=== PATIENT | male | born 1950 | race Caucasian/White ===

== ENCOUNTER 2023-09-03 13:32 | Inpatient (IN) | payer BC, MEDICARE ==
[2023-09-03] MEDS ORDERED: HYDROmorphone 0.5 MG/0.5 ML SYRINGE IVP STA (15:18)
[2023-09-03] MEDS ORDERED: ONDANSETRON 4 MG/2 ML VIAL IVP STA (15:18)
--- NOTE | 2023-09-03 15:30 | XR ---
EXAMINATION TYPE: XR shoulder complete LT DATE OF EXAM: 09/03/2023 2:47 PM CLINICAL INDICATION:Male, 73 years old with history of pain; PHH COMPARISON: None TECHNIQUE: XR shoulder complete LT; shoulder was examined in AP, internally rotated and scapular Y p rojections. FINDINGS: No evidence of acute osseous pathology, joint dislocation, or soft tissue swelling. The remaining por tions of the visualized chest are unremarkable. IMPRESSION: No acute osseous pathology.
--- NOTE | 2023-09-03 15:31 | ED ---
Upper Extremity HPI - General Source: patient, RN notes reviewed Mode of arrival: ambulatory Limitations: no limitations <Jose De - Last Filed: 09/03/23 15:29> <Cali Knowles - Last Filed: 09/03/23 18:50> - General Chief Complaint: Extremity Injury, Upper Stated Complaint: shoulder pain fever Time Seen by Provider: 09/03/23 13:53 - History of Present Illness Initial Comments: 73-year-old male presents emergency Department chief complaint left shoulder redness, fever, pain. Patient states started a few days ago has really worsen. Patient went of subjective fevers, chills, sweats. Patient denies any trauma denies any prior joint infections or prior orthopedic surgeries. Patient states he has pain with any movement on the left shoulder. He doesn't at days had prior open heart surgery denies any neck pain or neck stiffness denies history of gout. (Jose De) - Related Data Home Medications Medication Instructions Recorded Confirmed Aspirin EC [Ecotrin Low Dose] 81 mg PO HS 09/03/23 09/03/23 Losartan Potassium [Cozaar] 100 mg PO DAILY 09/03/23 09/03/23 Metoprolol Tartrate [Lopressor] 50 mg PO BID 09/03/23 09/03/23 Simvastatin [Zocor] 40 mg PO DIRECTED 09/03/23 09/03/23 Simvastatin [Zocor] 80 mg PO DIRECTED 09/03/23 09/03/23 Tamsulosin [Flomax] 0.4 mg PO HS 09/03/23 09/03/23 Ubidecarenone [Coenzyme Q10] 200 mg PO HS 09/03/23 09/03/23 Allergies Allergy/AdvReac Type Severity Reaction Status Date / Time No Known Allergies Allergy Verified 09/03/23 18:11 Review of Systems ROS Other: All systems not noted in ROS Statement are negative. <Jose De - Last Filed: 09/03/23 15:29> ROS Other: All systems not noted in ROS Statement are negative. <Cali Knowles - Last Filed: 09/03/23 18:50> ROS Statement: Those systems with pertinent positive or pertinent negative responses have been documented in the HPI. Past Medical History Past Medical History: Diabetes Mellitus, GERD/Reflux, Hyperlipidemia, Hypert ension, Osteoarthritis (OA) Additional Past Medical History / Comment(s): diet control diabetic, ARTHRITIS IN KNEES, SINUS PROBLEMS, STRESS TEST A WEEK AGO, HAD PNE AND SHINGLES VACCINES FEW YEARS AGO NOT SURE OF DATE. History of Any Multi-Drug Resistant Organisms: None Reported Past Surgical History: Heart Catheterization With Stent Additional Past Surgical History / Comment(s): dental extractions, 08/31/16 HEART CATH Past Anesthesia/Blood Transfusion Reactions: No Reported Reaction Date of Last Stent Placement:: 2007 Past Psychological History: No Psychological Hx Reported Smoking Status: Never smoker Past Alcohol Use History: None Reported Past Drug Use History: None Reported - Past Family History Sister(s) Family Medical History: Cancer Father Family Medical History: Coronary Artery Disease (CAD) Additional Family Medical History / Comment(s): QUAD BYPASS AT AGE 69 Mother Family Medical History: Asthma Additional Family Medical History / Comment(s): EMPHYSEMA <Jose De - Last Filed: 09/03/23 15:29> General Exam Limitations: no limitations General appearance: alert, in no apparent distress Head exam: Present: atraumatic, normocephalic, normal inspection Neck exam: Present: normal inspection. Absent: tenderness, meningismus, lymphadenopathy Respiratory exam: Present: normal lung sounds bilaterally. Absent: respiratory distress, wheezes, rales, rhonchi, stridor Cardiovascular Exam: Present: normal rhythm, tachycardia, normal heart sounds. Absent: systolic murmur, diastolic murmur, rubs, gallop, clicks Extremities exam: Present: other (Left shoulder over the trapezius, AC, and lateral portion is erythema, swelling and tenderness palpation.) Neurological exam: Present: alert, oriented X3 Skin exam: Present: warm, dry, intact, normal color. Absent: rash <Jose De - Last Filed: 09/03/23 15:29> Course <Cali Knowles - Last Filed: 09/03/23 18:50> Vital Signs 09/03/23 09/03/23 13:47 16:15 Temperature 98.8 F Pulse Rate 103 H 99 Respiratory 18 18 Rate Blood Pressure 148/59 137/73 O2 Sat by Pulse 96 100 Oximetry - Reevaluation(s) Reevaluation #1: 09/03/23 18:47 Case, H&P, test results and ED management thus far were discussed with NAHUN Lagos. He accepts hospital admission on behalf of himself in Dr. Perez. He has no further recommendations at this time. 09/03/23 18:50 Patient and are aware the patient's test results, and they both agree with hospital admission at this time. Patient denies development of any new symptoms while in the ED. (Cali Knowles) Medical Decision Making - Lab Data Result diagrams: 09/03/23 15:15 09/03/23 17:10 <Cali Knowles - Last Filed: 09/03/23 18:50> - Medical Decision Making Was pt. sent in by a medical professional or institution (, NAHUN, AQUACULTURE AND FISHERIES PROFESSOR, urgent care, hospital, or detention...) When possible be specific @ -No Did you speak to anyone other than the patient for history (EMS, parent, family, police, friend...)? What history was obtained from this source @ -No Did you review nursing and triage notes (agree or disagree)? Why? @ -I reviewed and agree with nursing and triage notes Were old charts reviewed (outside hosp., previous admission, EMS record, old EKG, old radiological studies, urgent care reports/EKG's, detention records)? Report findings @ -No old charts were reviewed Differential Diagnosis (chest pain, altered mental status, abdominal pain women, abdominal pain men, vaginal bleeding, weakness, fever, dyspnea, syncope, headache, dizziness, GI bleed, back pain, seizure, CVA, palpatations, mental health, musculoskeletal)? @ -Shoulder pain, cellulitis, fracture, sprain, strain, shingles, septic joint EKG interpreted by me (3pts min.). @ -None done X-rays interpreted by me (1pt min.). @ -Left shoulder x-rays were reviewed myself and showed no acute osseous abnormality. I agree with the radiologist's interpretation as above. CT interpreted by me (1pt min.). @ -None done U/S interpreted by me (1pt. min.). @ -None done What testing was considered but not performed or refused? (CT, X-rays, U/S, labs)? Why? @ -None What meds were considered but not given or refused? Why? @ -None Did you discuss the management of the patient with other professionals (professionals i.e. , PA, AQUACULTURE AND FISHERIES PROFESSOR, lab, RT, psych nurse, social service worker, utility sales and service manager, teacher, division officer weapons department, rn case management)? Give summary @ -As above Was smoking cessation discussed for >3mins.? @ -No Was critical care preformed (if so, how long)? @ -No Were there social determinants of health that impacted care today? How? (Homelessness, low income, unemployed, alcoholism, drug addiction, transportation, low edu. Level, literacy, decrease access to med. care, custodial, rehab)? @ -No Was there de-escalation of care discussed even if they declined (Discuss DNR or withdrawal of care, Hospice)? DNR status @ -No What co-morbidities impacted this encounter? (DM, HTN, Smoking, COPD, CAD, Cancer, CVA, ARF, Chemo, Hep., AIDS, mental health diagnosis, sleep apnea, morbid obesity)? @ -None Was patient admitted / discharged? Hospital course, mention meds given and route, prescriptions, significant lab abnormalities, going to OR and other pertinent info. @ -Patient was endorsed to me by ED NAHUN De (secondary to end of his shift) with the patient's labs still pending. On examination, the patient has tender, blanching erythema noted over his left anterior and lateral shoulder region and extending to his left superior/lateral chest consistent with cellulitis. No crepitation is appreciated. Patient is afebrile. Patient does have a leukocytosis of 17,000. Patient's left shoulder x-rays are negative for any osseous pathology. Patient denies known shoulder injury. I suspect that the patient's symptoms/findings are due to cellulitis. Patient is also noted to be hyperglycemic with a blood glucose in the 300s, but he is not acidotic. Nahun santana has been treated with IV vancomycin and IV fluids in the ED. NAHUN Lagos has accepted hospital admission. Undiagnosed new problem with uncertain prognosis? @ -No Drug Therapy requiring intensive monitoring for toxicity (Heparin, Nitro, Insulin, Cardizem)? @ -No Were any procedures done? @ -No Diagnosis/symptom? @ -Left shoulder/chest wall cellulitis Acute, or Chronic, or Acute on Chronic? @ -Acute Uncomplicated (without systemic symptoms) or Complicated (systemic symptoms)? @ -default Side effects of treatment? @ -No Exacerbation, Progression, or Severe Exacerbation? @ -No Poses a threat to life or bodily function? How? (Chest pain, USA, CA, pneumonia, PE, COPD, DKA, ARF, appy, cholecystitis, CVA, Diverticulitis, Homicidal, Suicidal, threat to staff... and all critical care pts) @ -No Diagnosis/symptom? @ -Hyperglycemia Acute, or Chronic, or Acute on Chronic? @ -default Uncomplicated (without systemic symptoms) or Complicated (systemic symptoms)? @ -default Side effects of treatment? @ -none Exacerbation, Progression, or Severe Exacerbation] @ -no Poses a threat to life or bodily function? @ -no (Cali Knowles) - Lab Data Lab Results 09/03/23 09/03/23 09/03/23 Range/Units 15:15 17:10 18:08 WBC 17.9 H (3.8-10.6) k/uL RBC 4.52 (4.30-5.90) m/uL Hgb 13.4 (13.0-17.5) gm/dL Hct 40.1 (39.0-53.0) % MCV 88.7 (80.0-100.0) fL MCH 29.6 (25.0-35.0) pg MCHC 33.4 (31.0-37.0) g/dL RDW 14.5 (11.5-15.5) % Plt Count 445 (150-450) k/uL MPV 8.4 Neutrophils % 92 % Lymphocytes % 3 % Monocytes % 3 % Eosinophils % 1 % Basophils % 0 % Neutrophils # 16.5 H (1.3-7.7) k/uL Lymphocytes # 0.5 L (1.0-4.8) k/uL Monocytes # 0.6 (0-1.0) k/uL Eosinophils # 0.1 (0-0.7) k/uL Basophils # 0.1 (0-0.2) k/uL Sodium 131 L (137-145) mmol/L Potassium 4.9 (3.5-5.1) mmol/L Chloride 99 (98-107) mmol/L Carbon Dioxide 25 (22-30) mmol/L Anion Gap 7 mmol/L BUN 30 H (9-20) mg/dL Creatinine 0.60 L (0.66-1.25) mg/dL Est GFR (CKD-EPI)AfAm >90 (>60 ml/min/1.73 sqM) Est GFR (CKD-EPI)NonAf >90 (>60 ml/min/1.73 sqM) Glucose 307 H (74-99) mg/dL Plasma Lactic Acid Baljit 1.4 (0.7-2.0) mmol/L Uric Acid 4.0 (3.5-8.5) mg/dL Calcium 8.0 L (8.4-10.2) mg/dL Total Bilirubin 0.8 (0.2-1.3) mg/dL AST 58 (17-59) U/L ALT 37 (4-49) U/L Alkaline Phosphatase 146 H (38-126) U/L C-Reactive Protein 26.1 H (<1.0) mg/dL Total Protein 5.1 L (6.3-8.2) g/dL Albumin 2.3 L (3.5-5.0) g/dL - Radiology Data Left shoulder x-rays: No acute osseous pathology. (Cali Knowles) Disposition <Jose De - Last Filed: 09/03/23 15:29> Is patient prescribed a controlled substance at d/c from ED?: No Time of Disposition: 18:47 <Cali Knowles - Last Filed: 09/03/23 18:50> Clinical Impression: Cellulitis, Hyperglycemia Disposition: ADMITTED IP TO THIS HOSP Condition: Stable Referrals: Rogers Boykin DO [Primary Care Provider] - 1-2 days
[2023-09-03 16:02] LABS: Basophils # (A) 0.1 k/uL (0-0.2); Basophils % (A) 0 %; Eosinophils # (A) 0.1 k/uL (0-0.7); Eosinophils % (A) 1 %; HCT 40.1 % (39.0-53.0); HGB 13.4 gm/dL (13.0-17.5); Lymphocytes # (A) 0.5 k/uL (1.0-4.8); Lymphocytes % (A) 3 %; MCH 29.6 pg (25.0-35.0); MCHC 33.4 g/dL (31.0-37.0); MCV 88.7 fL (80.0-100.0); Mean Platelet Volume 8.4; Monocytes # (A) 0.6 k/uL (0-1.0); Monocytes % (A) 3 %; Neutrophils # (A) 16.5 k/uL (1.3-7.7); Neutrophils % (A) 92 %; Platelet Count 445 k/uL (150-450); RBC 4.52 m/uL (4.30-5.90); RDW 14.5 % (11.5-15.5); WBC 17.9 k/uL (3.8-10.6)
[2023-09-03] MEDS ORDERED: VANCOMYCIN IV PER PHARMACY 1 EACH MISC MISCELLANE PRN (16:08)
[2023-09-03] MEDS ORDERED: VANCOMYCIN 1,750 MG in SODIUM CHLORIDE 0.9% 500 ML 500 ML IVPB STA (16:10)
[2023-09-03 17:34] LABS: ALT 37 U/L (4-49); AST 58 U/L (17-59); African American GFR (CKD) >90 (>60 ml/min/1.73 sqM); Albumin 2.3 g/dL (3.5-5.0); Alkaline Phosphatase 146 U/L (38-126); Anion Gap 7 mmol/L; Blood Urea Nitrogen 30 mg/dL (9-20); Carbon Dioxide 25 mmol/L (22-30); Chloride 99 mmol/L (98-107); Glucose 307 mg/dL (74-99); Non-African American GFR(CKD) >90 (>60 ml/min/1.73 sqM); Sodium 131 mmol/L (137-145); Total Bilirubin 0.8 mg/dL (0.2-1.3); Total Protein 5.1 g/dL (6.3-8.2)
[2023-09-03 17:46] LABS: C Reactive Protein 26.1 mg/dL (<1.0); Potassium 4.9 mmol/L (3.5-5.1)
[2023-09-03] MEDS ORDERED: SODIUM CHLORIDE 0.9% 1,000 ML IV ONE (18:22)
[2023-09-03] MEDS ORDERED: NALOXONE 0.4 MG/ML 1 ML VIAL IV PRN (18:48)
[2023-09-03] MEDS: ACETAMINOPHEN TAB 325 MG TAB PO PRN (20:48)
[2023-09-03] MEDS: MORPHINE SULFATE 4 MG/ML SYRINGE IVP PRN (20:49)
[2023-09-03 23:24] LABS: Erythrocyte Sedimentation Rate >130 mm/Hr (0-20)
[2023-09-04 04:50] LABS: ALT 45 U/L (4-49); AST 108 U/L (17-59); African American GFR (CKD) >90 (>60 ml/min/1.73 sqM); Albumin 2.1 g/dL (3.5-5.0); Albumin/Globulin Ratio 0.8; Alkaline Phosphatase 128 U/L (38-126); Anion Gap 5 mmol/L; Blood Urea Nitrogen 31 mg/dL (9-20); Calcium 7.8 mg/dL (8.4-10.2); Carbon Dioxide 22 mmol/L (22-30); Chloride 104 mmol/L (98-107); Globulin 2.6 g/dL; Glucose 232 mg/dL (74-99); Non-African American GFR(CKD) >90 (>60 ml/min/1.73 sqM); Sodium 131 mmol/L (137-145); Total Bilirubin 0.8 mg/dL (0.2-1.3); Total Protein 4.7 g/dL (6.3-8.2)
[2023-09-04 04:52] LABS: Potassium 5.2 mmol/L (3.5-5.1)
[2023-09-04] MEDS ORDERED: VANCOMYCIN 1,750 MG in SODIUM CHLORIDE 0.9% 500 ML 500 ML IVPB SCH (06:00)
[2023-09-04 09:34] LABS: Basophils # (A) 0.04 X 10*3/uL (0.00-0.10); Basophils % (A) 0.2 %; Eosinophils # (A) 0.18 X 10*3/uL (0.04-0.35); HCT 36.7 % (39.6-50.0); HGB 11.8 d/dL (13.0-17.0); Lymphocytes # (A) 0.88 X 10*3/uL (0.90-5.00); Lymphocytes % (A) 4.7 %; MCH 27.8 pg (27.0-32.0); MCHC 32.2 d/dL (32.0-37.0); MCV 86.4 FL (80.0-97.0); Mean Platelet Volume 10.3 FL (9.5-12.2); Monocytes # (A) 0.62 X 10*3/uL (0.20-1.00); Monocytes % (A) 3.3 %; NRBC Per 100 WBC 0 X 10*3/uL (0.00-0.01); Neutrophils # (A) 16.05 X 10*3/uL (1.80-7.70); Neutrophils % (A) 86.2 %; Platelet Count 421 X 10*3/uL (140-440); RBC 4.25 X 10*6/uL (4.40-5.60); RBC Morphology Normal (Normal); RDW 15.2 % (11.5-14.5); WBC 18.62 X 10*3/uL (4.50-10.00)
[2023-09-04] MEDS: SODIUM CHLORIDE 0.9% 1,000 ML IV SCH (12:39)
--- NOTE | 2023-09-04 13:48 | US ---
EXAMINATION TYPE: US venous doppler duplex UE LT DATE OF EXAM: 09/04/2023 Exam done portable COMPARISON: NONE CLINICAL INDICATION: Male, 73 years old with history of r/o dvt; Left shoulder pain, swelling and red ness SIDE PERFORMED: Left Left Arm: Appears negative for DVT IMPRESSION: Grayscale, color doppler, spectral doppler imaging performed of the deep veins of the upper extremiti es. There is normal flow, compressibility and vascular waveforms.
[2023-09-04] MEDS ORDERED: RX INFO: IV CONTRAST WAS GIVEN 1 EACH MISC MISCELLANE PRN (14:13)
[2023-09-04] MEDS: CLINDAMYCIN 900 MG in DEXTROSE 5% IN WATER 50 ML IVPB SCH ×2 (16:53)
--- NOTE | 2023-09-04 19:43 | CT ---
EXAMINATION TYPE: CT shoulder LT w con CT DLP: 1156.6 mGycm, Automated exposure control for dose reduction was used. DATE OF EXAM: 09/04/2023 4:24 PM COMPARISON: Extremity radiograph 09/03/2023 CLINICAL INDICATION:Male, 73 years old with history of abscess; PHH, left shoulder redness and swelli ng TECHNIQUE: Axial images were obtained of the left shoulder w contrast. Additional coronal and sagitt al reformatted images and soft tissue and bone window were obtained for review. 3-D reconstruction wa s created on a separate workstation. Contrast used:80 cc mL of Isovue 370 with IV Contrast, Oral contrast used: None FINDINGS: Erosion Control Coordinator view shows sternotomy wires and mild cardiomegaly. Bone: Normal osseous mineralization. No fracture or gross osseous destructive process. AC joint and g lenohumeral joint show mild degenerative changes with preserved alignment. Soft tissues: Surrounding the left glenohumeral joint there is a moderately large heterogeneous flui d collection with irregular margins and peripheral enhancement, with involvement of the joint space a nd surrounding soft tissues, including some extension medially along the scapular wing anteriorly to its midportion. Collection also extends into the superficial musculature, especially the deltoid. The re are couple of small radiodensities seen within the fluid collection just inferior to the glenohume ral joint, the larger 6 mm and the smaller 2 mm There is also a small amount of fluid and gas bubbles seen in the soft tissues superior and anterior to the acromioclavicular joint, with some apparent fluid and small gas bubbles extending into the analia nt space. Visualized vasculature appears grossly patent. Note the distal humerus/arm is not imaged beyond the m id humeral shaft. Other: Mild cardiomegaly. Post CABG changes, including mediastinal clips and sternotomy wires. Mild/m oderate atherosclerotic calcification of the aorta and [place] coronary arteries. Visualized lungs joshua w no focal consolidation or pneumothorax. Mild pleural thickening posteriorly on the left. Mild left perinephric stranding, may be chronic but if there is concern for infection correlation with urinalys is may be considered. IMPRESSION: 1. No evidence of fracture, dislocation, or osseous destructive changes in the left shoulder. 2. Mild degenerative changes of the glenohumeral and acromioclavicular joints. 3. Moderately large fluid collection involving the left glenohumeral joint and surrounding soft tiss ues, highly concerning for abscess and septic joint. A couple small radiodensities within this colle ction, could relate to calcifications and/or foreign bodies. 4. Smaller amount of fluid and gas bubbles within the AC joint and extending superiorly, likely also of infectious etiology.
[2023-09-04 20:54] LABS: Glucose,Whole Blood 217 mg/dL (70-110)
[2023-09-04] MEDS ORDERED: NON FORMULARY DRUG (Ubidecarenone [Coenzyme Q10] 200 MG Capsule) PO SCH (21:00)
[2023-09-04] MEDS: LOSARTAN 50 MG TAB PO SCH (21:44)
[2023-09-04] MEDS: METOPROLOL TARTRATE 50 MG TAB PO SCH (22:11)
[2023-09-04] MEDS: TAMSULOSIN 0.4 MG CAP.ER.24H PO SCH (22:11)
[2023-09-04] MEDS: ATORVASTATIN 20 MG TAB PO SCH (22:11)
[2023-09-04] MEDS: INSULIN ASPART (NovoLOG) 100 UNIT/ML VIAL SQ SCH (22:12)
[2023-09-04] MEDS: ASPIRIN 81 MG PO SCH (22:12)
[2023-09-04] MEDS: ACETAMINOPHEN TAB 325 MG TAB PO PRN (22:14)
[2023-09-05] MEDS: CLINDAMYCIN 900 MG in DEXTROSE 5% IN WATER 50 ML IVPB SCH ×6 (00:12→16:42)
[2023-09-05] MEDS: SODIUM CHLORIDE 0.9% 1,000 ML IV SCH ×2 (00:14→08:46)
[2023-09-05] MEDS: MORPHINE SULFATE 4 MG/ML SYRINGE IVP PRN (02:38)
[2023-09-05 06:06] LABS: African American GFR (CKD) >90 (>60 ml/min/1.73 sqM); Non-African American GFR(CKD) >90 (>60 ml/min/1.73 sqM)
[2023-09-05 06:19] LABS: Glucose,Whole Blood 187 mg/dL (70-110)
[2023-09-05] MEDS: INSULIN ASPART (NovoLOG) 100 UNIT/ML VIAL SQ SCH ×4 (07:10→21:18)
[2023-09-05] MEDS: METOPROLOL TARTRATE 50 MG TAB PO SCH ×2 (08:51→21:17)
[2023-09-05] MEDS: LOSARTAN 50 MG TAB PO SCH (08:51)
[2023-09-05] MEDS ORDERED: HEPARIN SODIUM,PORCINE 5,000 UNIT/ML 1 ML VIAL SQ SCH (10:30)
--- NOTE | 2023-09-05 11:02 | P.HPIM ---
History of Present Illness Patient is a pleasant 73-year-old male came in with compensative left shoulder pain unable to lift it and is also found to have cellulitis of the left upper extremity. Doppler of the left upper extremity did not show any DVT patient denied any history of MRSA presently on ceftezoline and clindamycin, infectious disease was consulted because of the concerns of shoulder joint infection, although Tash surgery was consulted. Patient does have leukocytosis and low- grade fevers. Patient recently visited urgent care who sent him here he visited urgent care because of significant generalized weakness REVIEW OF SYSTEMS: CONSTITUTIONAL: No fever, no malaise, no fatigue. HEENT: No recent visual problems or hearing problems. Denied any sore throat. CARDIOVASCULAR: No chest pain, orthopnea, PND, no palpitations, no syncope. PULMONARY: No shortness of breath, no cough, no hemoptysis. GASTROINTESTINAL: No diarrhea, no nausea, no vomiting, no abdominal pain. NEUROLOGICAL: No headaches, no weakness, no numbness. HEMATOLOGICAL: Denies any bleeding or petechiae. GENITOURINARY: Denies any burning micturition, frequency, or urgency. MUSCULOSKELETAL/RHEUMATOLOGICAL: As mentioned in HPI ENDOCRINE: Denies any polyuria or polydipsia. The rest of the 14-point review of systems is negative. PHYSICAL EXAMINATION: GENERAL: The patient is alert and oriented x3, not in any acute distress. Well developed, well nourished. HEENT: Pupils are round and equally reacting to light. EOMI. No scleral icterus. No conjunctival pallor. Normocephalic, atraumatic. No pharyngeal erythema. No thyromegaly. CARDIOVASCULAR: S1 and S2 present. No murmurs, rubs, or gallops. PULMONARY: Chest is clear to auscultation, no wheezing or crackles. ABDOMEN: Soft, nontender, nondistended, normoactive bowel sounds. No palpable organomegaly. MUSCULOSKELETAL: Unable to move the left upper extremity at the shoulder region because of the severe pain. EXTREMITIES: No cyanosis, clubbing, or pedal edema. NEUROLOGICAL: Gross neurological examination did not reveal any focal deficits. SKIN: Significant cellulitis of the left upper extremity extending up to the left shoulder and forearm. Assessment and plan -Cellulitis of the left upper extremity: Patient was started on ceftezolin, clindamycin and with infectious disease consultation. Shoulder joint infection cannot be ruled out, orthopedic surgery was consulted. -Hypervolemic hyponatremia patient was started on IV fluids because of elevated chloride I changed it to lactated Ringer's. -Hypertension patient has low normal blood pressures because of which cutting down the dose of losartan and metoprolol will be continued -Benign prostatic hypertrophy continue with Flomax -Hyperlipidemia -Type 2 diabetes mellitus -Osteoarthritis -Coronary artery disease with stents in the past patient was resumed on his home medications -Mild hyperkalemia: Secondary to losartan dose of which was decreased DVT prophylaxis: Lovenox 50 mg subcutaneous Past Medical History Past Medical History: Diabetes Mellitus, GERD/Reflux, Hyperlipidemia, Hyperte nsion, Osteoarthritis (OA) Additional Past Medical History / Comment(s): diet control diabetic, ARTHRITIS IN KNEES, SINUS PROBLEMS, STRESS TEST A WEEK AGO, HAD PNE AND SHINGLES VACCINES FEW YEARS AGO NOT SURE OF DATE. History of Any Multi-Drug Resistant Organisms: None Reported Past Surgical History: Heart Catheterization With Stent Additional Past Surgical History / Comment(s): dental extractions, 08/31/16 HEART CATH Past Anesthesia/Blood Transfusion Reactions: No Reported Reaction Date of Last Stent Placement:: 2007 Past Psychological History: No Psychological Hx Reported Smoking Status: Never smoker Past Alcohol Use History: None Reported Past Drug Use History: None Reported - Past Family History Sister(s) Family Medical History: Cancer Father Family Medical History: Coronary Artery Disease (CAD) Additional Family Medical History / Comment(s): QUAD BYPASS AT AGE 69 Mother Family Medical History: Asthma Additional Family Medical History / Comment(s): EMPHYSEMA Medications and Allergies Home Medications Medication Instructions Recorded Confirmed Type Aspirin EC [Ecotrin Low Dose] 81 mg PO HS 09/03/23 09/03/23 History Losartan Potassium [Cozaar] 100 mg PO DAILY 09/03/23 09/03/23 History Metoprolol Tartrate [Lopressor] 50 mg PO BID 09/03/23 09/03/23 History Simvastatin [Zocor] 40 mg PO DIRECTED 09/03/23 09/03/23 History Simvastatin [Zocor] 80 mg PO DIRECTED 09/03/23 09/03/23 History Tamsulosin [Flomax] 0.4 mg PO HS 09/03/23 09/03/23 History Ubidecarenone [Coenzyme Q10] 200 mg PO HS 09/03/23 09/03/23 History Allergies Allergy/AdvReac Type Severity Reaction Status Date / Time No Known Allergies Allergy Verified 09/03/23 18:11 Physical Exam Vitals: Vital Signs Temp Pulse Pulse Resp BP BP Pulse Ox 09/05/23 07:17 98.3 F 90 18 127/68 94 L 09/05/23 01:34 98 F 74 111/67 94 L 09/04/23 20:00 98.1 F 87 135/73 94 L 09/04/23 19:49 15 09/04/23 13:35 98.5 F 97 19 140/71 94 L Intake and Output 09/04/23 09/05/23 09/05/23 22:59 06:59 14:59 Output Total 850 Balance -850 Output: Urine 850 Straight 750 Other: # Voids 2 # Bowel Movements 0 Results CBC & Chem 7: 09/04/23 04:21 09/05/23 05:38 Labs: Abnormal Lab Results - Last 24 Hours (Table) 09/04/23 09/05/23 09/05/23 Range/Units 20:52 05:38 06:17 Creatinine 0.62 L (0.66-1.25) mg/dL POC Glucose (mg/dL) 217 H 187 H (70-110) mg/dL Microbiology - Last 24 Hours (Table) 09/03/23 15:00 Blood Culture Gram Stain - Preliminary Blood Blood Culture - Preliminary Strep agalactiae - (group b) 09/03/23 15:15 Blood Culture - Preliminary Blood Thrombosis Risk Factor Assmnt - Choose All That Apply Each Factor Represents 1 point: Obesity (BMI >25) Each Risk Factor Represents 2 Points: Age 61-74 years Thrombosis Risk Factor Assessment Total Risk Factor Score: 3 Thrombosis Risk Factor Assessment Level: Moderate Risk
[2023-09-05 11:31] LABS: BUN/Creat Ratio 30.14 Ratio (12.00-20.00); Blood Urea Nitrogen 21.1 mg/dL (9.0-27.0); Calcium 7.7 mg/dL (8.7-10.3); Carbon Dioxide 22.2 mmol/L (21.6-31.8); Chloride 104 mmol/L (96-109); Glucose 197 mg/dL (70-110); Potassium 4.7 mmol/L (3.5-5.5); Sodium 135 mmol/L (135-145)
[2023-09-05 11:42] LABS: HCT 31.5 % (39.6-50.0); HGB 10.2 d/dL (13.0-17.0); MCHC 32.4 d/dL (32.0-37.0); MCV 86.5 FL (80.0-97.0); NRBC Per 100 WBC 0 X 10*3/uL (0.00-0.01); Platelet Count 387 X 10*3/uL (140-440); RBC 3.64 X 10*6/uL (4.40-5.60); RDW 15.2 % (11.5-14.5); WBC 17.28 X 10*3/uL (4.50-10.00)
[2023-09-05 12:22] LABS: Glucose,Whole Blood 319 mg/dL (70-110)
--- NOTE | 2023-09-05 12:32 | P.CNOR ---
History of Present Illness - [facility] Consult date: 09/05/23 History of present illness: This patient is a 73- year old male with a past medical history of type 2 diabetes, coronary artery disease, hypertension, hyperlipidemia that presented to [facility] emergency department on Tuesday09/03/23 with complaints of left shoulder pain. He states the pain has been present about a week, but s ignificantly worsened over the last few days. He was evaluated initially by an urgent care, who sent the patient to the emergency department. Patient was admitted under the care of internal medicine on 09/03/23. Infectious disease was consulted and CT of the left shoulder was ordered, which showed a large fluid collection and joint effusion concerning for abscess/septic arthritis. Blood cultures drawn on 09/03 also are positive for group B strep. Consult to orthopedic surgery was placed this morning 09/05 for evaluation of the patient's left shoulder. Patient is examined bedside today with Dr. Ball. He complains of left shoulder pain and inability to move the shoulder due to swelling and pain. No additional complaints. WBC elevated at 17.2 this morning, currently afebrile. Past Medical History Past Medical History: Diabetes Mellitus, GERD/Reflux, Hyperlipidemia, Hypertension, Osteoarthritis (OA) Additional Past Medical History / Comment(s): diet control diabetic, ARTHRITIS IN KNEES, SINUS PROBLEMS, STRESS TEST A WEEK AGO, HAD PNE AND SHINGLES VACCINES FEW YEARS AGO NOT SURE OF DATE. History of Any Multi-Drug Resistant Organisms: None Reported Past Surgical History: Heart Catheterization With Stent Additional Past Surgical History / Comment(s): dental extractions, 08/31/16 HEART CATH Past Anesthesia/Blood Transfusion Reactions: No Reported Reaction Date of Last Stent Placement:: 2007 Past Psychological History: No Psychological Hx Reported Smoking Status: Never smoker Past Alcohol Use History: None Reported Past Drug Use History: None Reported - Past Family History Sister(s) Family Medical History: Cancer Father Family Medical History: Coronary Artery Disease (CAD) Additional Family Medical History / Comment(s): QUAD BYPASS AT AGE 69 Mother Family Medical History: Asthma Additional Family Medical History / Comment(s): EMPHYSEMA Medications and Allergies Home Medications Medication Instructions Recorded Confirmed Type Aspirin EC [Ecotrin Low Dose] 81 mg PO HS 09/03/23 09/03/23 History Losartan Potassium [Cozaar] 100 mg PO DAILY 09/03/23 09/03/23 History Metoprolol Tartrate [Lopressor] 50 mg PO BID 09/03/23 09/03/23 History Simvastatin [Zocor] 40 mg PO DIRECTED 09/03/23 09/03/23 History Simvastatin [Zocor] 80 mg PO DIRECTED 09/03/23 09/03/23 History Tamsulosin [Flomax] 0.4 mg PO HS 09/03/23 09/03/23 History Ubidecarenone [Coenzyme Q10] 200 mg PO HS 09/03/23 09/03/23 History Allergies Allergy/AdvReac Type Severity Reaction Status Date / Time No Known Allergies Allergy Verified 09/03/23 18:11 Physical Examination On examination, patient is sitting up in bed in no acute distress. He is alert and orientated x3. His head appears normocephalic and atraumatic. His breathing appears nonlabored. A focused examination of the left shoulder is conducted. On inspection of the left upper extremity, there is diffuse swelling and erythema of the shoulder with swelling extending to the hand. No open wounds. Patient is unable to tolerate passive [id number] of the shoulder due to pain. There is diffuse pain with palpation of the shoulder with fluctuance. No pain with palpation of the elbow, forearm, wrist, hand. Motor and sensory function grossly intact left upper extremity. Left upper extremity warm and well perfused. Results CT scan of the left shoulder reviewed. - Labs Labs: Abnormal Lab Results - Last 24 Hours (Table) 09/04/23 09/05/23 09/05/23 Range/Units 20:52 05:38 05:38 WBC 17.28 H (4.50-10.00) X 10*3/uL RBC 3.64 L (4.40-5.60) X 10*6/uL Hgb 10.2 L (13.0-17.0) d/dL Hct 31.5 L (39.6-50.0) % RDW 15.2 H (11.5-14.5) % Creatinine 0.62 L (0.66-1.25) mg/dL BUN/Creatinine Ratio (12.00-20.00) Ratio Glucose (70-110) mg/dL POC Glucose (mg/dL) 217 H (70-110) mg/dL Calcium (8.7-10.3) mg/dL 09/05/23 09/05/23 Range/Units 05:38 06:17 WBC (4.50-10.00) X 10*3/uL RBC (4.40-5.60) X 10*6/uL Hgb (13.0-17.0) d/dL Hct (39.6-50.0) % RDW (11.5-14.5) % Creatinine (0.66-1.25) mg/dL BUN/Creatinine Ratio 30.14 H (12.00-20.00) Ratio Glucose 197 H (70-110) mg/dL POC Glucose (mg/dL) 187 H (70-110) mg/dL Calcium 7.7 L (8.7-10.3) mg/dL Microbiology - Last 24 Hours (Table) 09/03/23 15:00 Blood Culture Gram Stain - Preliminary Blood Blood Culture - Preliminary Strep agalactiae - (group b) 09/03/23 15:15 Blood Culture - Preliminary Blood H & H 09/03/23 09/04/23 09/05/23 Range/Units 15:15 04:21 05:38 Hgb 13.4 11.8 L 10.2 L (13.0-17.5) gm/dL Hct 40.1 36.7 L 31.5 L (39.0-53.0) % Result Diagrams: 09/05/23 05:38 09/05/23 05:38 Assessment and Plan Assessment: Left shoulder pain Left shoulder septic arthritis Plan: - Recommend aspiration of the patient's left shoulder, which was performed bedside during exam. Aspiration revealed nahed purulence from the left shoulder. The fluid was sent to the lab for culture. Recommend formal I&D of the left shou lder in the operating room this afternoon. This was discussed in detail with the patient and his nurse. Risks verus benefits were discussed with the patient and verbal consent obtained. - Will plan for I&D of the left shoulder later this afternoon. Patient's last meal was around 8am this morning. Patient should remain NPO at this time. - Medical management, IV antibiotics per admitting team and infectious disease. Procedure: The skin overlying the posterior shoulder was prepped with Chlorapr ep. An 18-g spinal needle was inserted and ~40mL of nahed pus was aspirated from the left shoulder. The needle was removed and a bandaid was applied. The fluid was sent to the lab for culture. The patient tolerated this well.
[2023-09-05] MEDS: LACTATED RINGERS 1,000 ML IV SCH (12:53)
--- NOTE | 2023-09-05 13:41 | P.HPIM ---
History of Present Illness This is a pleasant 73 years old male with past medical history of Diabetes Mellitus, GERD/Reflux, Hyperlipidemia, Hypertension, Osteoarthritis diet control diabetic, ARTHRITIS IN KNEES, History of coronary artery disease, status post Heart Catheterization With Stent Patient presents because of redness swelling and tenderness around the left shoulder, left upper chest. Patient says that this is started last Tuesday and he noticed A gradually getting worse, currently has difficulty moving his arm because of pain which is mainly in the left upper shoulder. Patient denies trauma. Denies any muscle or insect bite He had pain in the left shoulder area about 10/10 on admission but not as much better with pain medication. Patient denies any chest pain or dyspnea other than above. No change in mental status. No change in urine or bowel habits. Patient had low-grade fever 100.5 on admission, rest of vitals looks stable. Also he has mild leukocytosis of 17.9, rest of CBC is unremarkable ESR is elevated more than 1:30. Sodium 131, potassium 5.2, creatinine 0.6. Glucose elevated more than 320 30. Liver enzymes not elevated. C-reactive protein is elevated at 26. On admission patient was started on IV vancomycin and received 1 L of normal saline boluses Review of Systems Review of systems CONSTITUTIONAL: No fever, no malaise, no fatigue. HEENT: No recent visual problems or hearing problems. Denied any sore throat. CARDIOVASCULAR: No orthopnea, PND, no palpitations, no syncope. PULMONARY: No shortness of breath, no cough, no hemoptysis. GASTROINTESTINAL: No diarrhea, no nausea, no vomiting, no abdominal pain. Normoactive bowel sounds. NEUROLOGICAL: No headaches, no weakness, no numbness. HEMATOLOGICAL: Denies any bleeding or petechiae. GENITOURINARY: Denies any burning micturition, frequency, or urgency. MUSCULOSKELETAL/RHEUMATOLOGICAL: Denies any joint pain, swelling, or any muscle pain. ENDOCRINE: Denies any polyuria or polydipsia. Past Medical History Past Medical History: Diabetes Mellitus, GERD/Reflux, Hyperlipidemia, Hypertension, Osteoarthritis (OA) Additional Past Medical History / Comment(s): diet control diabetic, ARTHRITIS IN KNEES, SINUS PROBLEMS, STRESS TEST A WEEK AGO, HAD PNE AND SHINGLES VACCINES FEW YEARS AGO NOT SURE OF DATE. History of Any Multi-Drug Resistant Organisms: None Reported Past Surgical History: Heart Catheterization With Stent Additional Past Surgical History / Comment(s): dental extractions, 08/31/16 HEART CATH Past Anesthesia/Blood Transfusion Reactions: No Reported Reaction Date of Last Stent Placement:: 2007 Past Psychological History: No Psychological Hx Reported Smoking Status: Never smoker Past Alcohol Use History: None Reported Past Drug Use History: None Reported - Past Family History Sister(s) Family Medical History: Cancer Father Family Medical History: Coronary Artery Disease (CAD) Additional Family Medical History / Comment(s): QUAD BYPASS AT AGE 69 Mother Family Medical History: Asthma Additional Family Medical History / Comment(s): EMPHYSEMA Medications and Allergies Home Medications Medication Instructions Recorded Confirmed Type Aspirin EC [Ecotrin Low Dose] 81 mg PO HS 09/03/23 09/03/23 History Losartan Potassium [Cozaar] 100 mg PO DAILY 09/03/23 09/03/23 History Metoprolol Tartrate [Lopressor] 50 mg PO BID 09/03/23 09/03/23 History Simvastatin [Zocor] 40 mg PO DIRECTED 09/03/23 09/03/23 History Simvastatin [Zocor] 80 mg PO DIRECTED 09/03/23 09/03/23 History Tamsulosin [Flomax] 0.4 mg PO HS 09/03/23 09/03/23 History Ubidecarenone [Coenzyme Q10] 200 mg PO HS 09/03/23 09/03/23 History Allergies Allergy/AdvReac Type Severity Reaction Status Date / Time No Known Allergies Allergy Verified 09/03/23 18:11 Physical Exam Vitals: Vital Signs Temp Pulse Resp BP Pulse Ox 09/04/23 01:12 99.4 F 85 22 139/78 92 L 09/03/23 22:18 98.9 F 09/03/23 20:00 100.5 F H 94 18 117/69 97 09/03/23 18:54 101 H 18 140/86 96 09/03/23 16:15 99 18 137/73 100 09/03/23 13:47 98.8 F 103 H 18 148/59 96 GENERAL: The patient is alert and oriented x3, not in any acute distress. Well developed, well nourished. HEENT: Pupils are round and equally reacting to light. EOMI. No scleral icterus. No conjunctival pallor. Normocephalic, atraumatic. No pharyngeal erythema. No thyromegaly. CARDIOVASCULAR: S1 and S2 present. No murmurs, rubs, or gallops. PULMONARY: Chest is clear to auscultation, no wheezing , no crackles. ABDOMEN: Soft, nontender, nondistended, normoactive bowel sounds. No palpable organomegaly. MUSCULOSKELETAL: No joint swelling or deformity. Left shoulder swelling present and tender with limitation of movement, extending into the left upper chest and left upper arm. The left upper extremities are swollen EXTREMITIES: No cyanosis, clubbing, or pedal edema. NEUROLOGICAL: Gross neurological examination did not reveal any focal deficits. SKIN: No rashes. no petechiae. Results CBC & Chem 7: 09/04/23 04:21 09/04/23 04:21 Labs: Abnormal Lab Results - Last 24 Hours (Table) 09/03/23 09/03/23 09/04/23 Range/Units 15:15 17:10 04:21 WBC 17.9 H (3.8-10.6) k/uL Neutrophils # 16.5 H (1.3-7.7) k/uL Lymphocytes # 0.5 L (1.0-4.8) k/uL ESR >130 H (0-20) mm/Hr Sodium 131 L 131 L (137-145) mmol/L Potassium 5.2 H (3.5-5.1) mmol/L BUN 30 H 31 H (9-20) mg/dL Creatinine 0.60 L 0.60 L (0.66-1.25) mg/dL Glucose 307 H 232 H (74-99) mg/dL Calcium 8.0 L 7.8 L (8.4-10.2) mg/dL AST 108 H (17-59) U/L Alkaline Phosphatase 146 H 128 H (38-126) U/L C-Reactive Protein 26.1 H (<1.0) mg/dL Total Protein 5.1 L 4.7 L (6.3-8.2) g/dL Albumin 2.3 L 2.1 L (3.5-5.0) g/dL Assessment and Plan Assessment: Left shoulder and chest wall cellulitis Mild sepsis with fever and leukocytosis Diabetes mellitus Hypertension Hyperlipidemia History of osteoarthritis History of coronary artery disease status post stent Plan: Continue with antibiotic Consults infectious disease team Start normal saline at 75 mL/h Labs and medication were reviewed.. Continue same treatment. Continue with symptomatic treatment. Resume home medication. Monitor lytes and vitals. DVT and GI prophylaxis. Further recommendations depends on the clinical course of the patient DVT prophylaxis: Subcutaneous heparin GI Prophylaxis: Pepcid PT/OT: Pending Prognosis is guarded
[2023-09-05 16:59] LABS: Glucose,Whole Blood 249 mg/dL (70-110)
[2023-09-05] MEDS ORDERED: LACTATED RINGERS 1,000 ML IV ONE (17:31)
[2023-09-05] MEDS ORDERED: SUCCINYLCHOLINE CHLORIDE 200 MG/10 ML VIAL IV ONE (18:08)
[2023-09-05] MEDS ORDERED: GLYCOPYRROLATE 0.2 MG/ML 2 ML VIAL ONE (18:08)
[2023-09-05] MEDS ORDERED: HYDROmorphone (PF) 1 MG/ML ONE (18:08)
[2023-09-05] MEDS ORDERED: PROPOFOL 10 MG/ML 20 ML VIAL IV ONE (18:08)
[2023-09-05] MEDS ORDERED: ROCURONIUM 10 MG/ML (5 ML VIAL) IV ONE (18:08)
[2023-09-05] MEDS ORDERED: ONDANSETRON 4 MG/2 ML VIAL ONE (18:08)
[2023-09-05] MEDS ORDERED: NEOSTIGMINE 1 MG/ML 10 ML VIAL ONE (18:08)
[2023-09-05] MEDS ORDERED: MIDAZOLAM 2 MG/2 ML VIAL ONE (18:08)
[2023-09-05] MEDS ORDERED: DEXAMETHASONE SOD PHOSPHATE 4 MG/ML 1 ML VIAL ONE (18:08)
[2023-09-05] MEDS ORDERED: fentaNYL (PF) 50 MCG/ML 2 ML AMP ONE (18:08)
[2023-09-05] MEDS ORDERED: PHENYLEPHRINE-0.9% NACL SYG 1,000 MCG/10 ML SYRINGE ONE (18:08)
[2023-09-05] MEDS ORDERED: LIDOCAINE 4% LTA KIT (4 ML) TOPICAL ONE (18:08)
[2023-09-05] MEDS ORDERED: LIDOCAINE 1% INJ 10MG/ML (20 ML MDV) ONE (18:08)
[2023-09-05] MEDS ORDERED: VANCOMYCIN 1,000 MG VIAL MISCELLANE ONE (18:57)
[2023-09-05 19:37] LABS: Glucose,Whole Blood 170 mg/dL (70-110)
[2023-09-05] MEDS ORDERED: ONDANSETRON 4 MG/2 ML VIAL IVP PRN (19:38)
[2023-09-05] MEDS ORDERED: SENNOSIDES-DOCUSATE SODIUM 1 EACH TAB PO PRN (19:38)
[2023-09-05] MEDS ORDERED: HYDROcodone/APAP 5-325MG 1 EACH TAB PO PRN (19:38)
--- NOTE | 2023-09-05 19:49 | P.OP ---
Date of Procedure: 09/05/23 Preoperative Diagnosis: 1. Septic left shoulder arthritis 2. Type 2 diabetes 3. Coronary artery disease Postoperative Diagnosis: 1. Left septic shoulder arthritis with complex multiloculated abscess, septic left AC joint 2. Chronic and massive left shoulder rotator cuff tear 3. Type 2 diabetes 4. Coronary artery disease Procedure(s) Performed: 1. Irrigation and excisional debridement of left shoulder joint (an excisional debridement using a scalpel of all nonviable skin, subcutaneous tissue and muscle down to the level of the shoulder joint was performed) 2. Application of negative pressure incision or wound VAC, left shoulder Anesthesia: NOAHA Surgeon: Arthur Ball Distribution Supervisor #1: Cami Shook Estimated Blood Loss (ml): 50 Pathology: none sent Condition: stable Disposition: PACU Indications for Procedure: The patient is a very pleasant 73-year-old male with multiple medical problems who is had 2 weeks of progressively worsening pain in his left shoulder. The patient and his state that he initially injured his shoulder lifting a sack of potatoes. He has had progressively worsening pain since that time. He initially presented to an urgent care where he was told that he had a rotator cuff tear and needed to follow up with an orthopedic surgeon. This past Tuesday the patient had increasing pain and the patient's decided to bring him to our facility due to having established care with a lead informatica developer in our community. The patient was admitted to the hospital early Tuesday afternoon. He received IV antibiotics and a computed tomography scan which was concerning for a deep abscess. I was not consulted until this morning. I immediately came to the hospital to evaluate the patient. He had diffuse cellulitis and pain with any attempts at passive range of motion of the shoulder. I aspirated the patient's shoulder joint and had nahed pus. I recommended an urgent irrigation and debridement. The patient and his understand the potential for complications. They also understand that reconstructive shoulder surgery is outside of my scope of practice and that all follow-up will have to be arranged by the primary team with a shoulder specialist. We discussed my role is to decompress the large abscess to prevent the patient from becoming critically ill. They voiced her understanding of this. Risks discussed include but are certainly not limited to risks from anesthesia, superficial infection, deep infection, cellulitis, osteomyelitis, spread of infection to vital organs, chronic dysfunction of his shoulder, inability to regain preinjury level of function, need for further surgical interventions including advanced shoulder reconstruction, DVT, PE, and possibly loss of life or limb. Operative Findings: There is diffuse cellulitis over the superior and lateral aspect of the shoulder. There is boggy swelling and edema from the shoulder distally into the hand. Immediately upon dissecting over the anterior third of the shoulder through the deltoid muscle fibers there was a large chen of gross purulence extending down to the shoulder joint. There was a massive rotator cuff tear. The abscess was multifocal and spread over the superior aspect of the shoulder and into the before meals joint. Description of Procedure: The patient was identified in preoperative holding and the correct left arm was marked with my initials. I reviewed the consent form with the patient and his . All their questions were answered. The patient was then brought back to the operating room by anesthesia. He was positioned in the beachchair position and secured after an anesthetic was given by anesthesia. All bony prominences well-padded. The left arm was then prepped and draped in the standard sterile fashion. Prior to starting surgery timeout was performed identifying the correct patient, operative extremity, and procedure. I began by palpating out the anatomy over the anterior and superior aspect of the shoulder. A longitudinal incision was made extending over the distal third of the clavicle extending laterally over the anterior third of the deltoid prominence. Skin incision was made a scalpel and dissection was carried down to the subcutaneous tissue with electrocautery. I bluntly dissected through the fibers of the deltoid and immediately upon doing so encountered a large chen of nahed pus. Having artery taken multiple cultures no additional cultures were taken. Using my gloved finger I dissected down into the shoulder joint. There was a massive rotator cuff and diffuse degenerative changes. The abscess involving the shoulder joint was multiloculated. I then tracked the abscess superiorly over the lateral aspect of the acromion where an additional large area of purulence was encountered. The AC joint capsule was opened and pus was encountered. Once I had thoroughly decompressed the abscess and excisional debridement was performed using a scalpel of all nonviable skin, subcutaneous tissue, and muscle down to the joint followed by 6 L of sterile saline was used via pulsatile lavage to thoroughly irrigate the wound. The wound was then loosely closed in layers with #1 PDS for the deep deltoid fascia, 2-0 PDS for the superficial subcu, and 3-0 nylon horizontal mattress sutures for the skin. Prior to closing the wound a deep drain was placed in the glenohumeral joint. An incisional wound VAC was then placed over the closed incision generating excellent seal. A drain sponge was placed. The drapes were then taken down and an Mookie wrap was placed over the left arm due to his swelling followed by a sling. All instrument, sponge, and sharp counts were correct. The patient was then awoken from his anesthetic, transferred from the OR table to a gurney, and brought to recovery following the procedure. Cami Shook PAC is required as a skilled assistant associate full professor for patient positioning, exposure, retraction, closure of wound, and application of dressing Plan: The patient can weight-bear as tolerated in his left upper extremity in a sling. IV antibiotics per infectious disease. We will change his incisional wound VAC on postoperative day #2 and pull his Hemovac drain after which we will turn over all wound care to infectious disease. We will continue to follow the patient while he is inpatient. Following discharge I recommend the primary service make arrangements for the patient to see an orthopedic shoulder specialist as this patient has multiple complicated shoulder problems that are outside of my scope of practice. I was involved urgently decompress his septic shoulder joint which has likely been present for several weeks. I related this to the patient's that he would need follow-up with a shoulder surgeon after discharge. She understood this and also requested that he see a shoulder specialist.
[2023-09-05 21:17] LABS: Glucose,Whole Blood 184 mg/dL (70-110)
[2023-09-05] MEDS: FAMOTIDINE 20 MG/2 ML VIAL IV SCH (21:17)
[2023-09-05] MEDS: ATORVASTATIN 40 MG TAB PO SCH (21:17)
[2023-09-05] MEDS: ASPIRIN 81 MG PO SCH (21:17)
[2023-09-05] MEDS: TAMSULOSIN 0.4 MG CAP.ER.24H PO SCH (21:17)
--- NOTE | 2023-09-05 23:32 | P.CONS ---
History of Present Illness - Reason for Consult Consult date: 09/04/23 Cellulitis Requesting physician: Ajay Cavanaugh - Chief Complaint Left shoulder pain swelling x few days - History of Present Illness Patient is a 73-year-old male with a past medical history for diab significantetes mellitus hypertension hyperlipidemia reflux osteoarthritis presenting to the ER for evaluation of left shoulder redness fever and pain patient said that has been going on for about a week and apparently patient has been evaluated in the outpatient setting at the urgent care with the patient was diagnosed with a possible torn rotator cuff patient did have a worsening pain swelling and subsequently the redness to the left shoulder area for the patient was in the hospital patient complaining of pain to the left shoulder to be throbbing intensity is almost 10 out of 10 without any radiation with associated swelling and redness did not have any open wound or any drainage with this event the patient has been evaluated on presentation to the hospital patient did have a fever of 100.5 degrees for an hide patient was not tachycardic hypotensive or hypoxic patient did have a white count of 17.9 with a left shift BUN/creatinine has been normal liver exams are normal patient was started on vancomycin infectious disease was consulted for further management of antibiotic therapy Review of Systems Positive point and negatives has been mentioned in the HPI, complete review of systems was performed and all other systems are negative Past Medical History Past Medical History: Diabetes Mellitus, GERD/Reflux, Hyperlipidemia, Hypertension, Osteoarthritis (OA) Additional Past Medical History / Comment(s): diet control diabetic, ARTHRITIS IN KNEES, SINUS PROBLEMS, STRESS TEST A WEEK AGO, HAD PNE AND SHINGLES VACCINES FEW YEARS AGO NOT SURE OF DATE. History of Any Multi-Drug Resistant Organisms: None Reported Past Surgical History: Heart Catheterization With Stent Additional Past Surgical History / Comment(s): dental extractions, 08/31/16 HEART CATH Past Anesthesia/Blood Transfusion Reactions: No Reported Reaction Date of Last Stent Placement:: 2007 Past Psychological History: No Psychological Hx Reported Smoking Status: Never smoker Past Alcohol Use History: None Reported Past Drug Use History: None Reported - Past Family History Sister(s) Family Medical History: Cancer Father Family Medical History: Coronary Artery Disease (CAD) Additional Family Medical History / Comment(s): QUAD BYPASS AT AGE 69 Mother Family Medical History: Asthma Additional Family Medical History / Comment(s): EMPHYSEMA Medications and Allergies Home Medications Medication Instructions Recorded Confirmed Type Aspirin EC [Ecotrin Low Dose] 81 mg PO HS 09/03/23 09/03/23 History Metoprolol Tartrate [Lopressor] 50 mg PO BID 09/03/23 09/03/23 History Tamsulosin [Flomax] 0.4 mg PO HS 09/03/23 09/03/23 History Ubidecarenone [Coenzyme Q10] 200 mg PO HS 09/03/23 09/03/23 History ceFAZolin [Kefzol] 2 gm IVP Q8HR #120 each 09/08/23 Rx Acetaminophen Tab [Tylenol] 650 mg PO Q6HR PRN tab 09/09/23 Rx Atorvastatin [Lipitor] 20 mg PO Q48H tab 09/09/23 Rx Atorvastatin [Lipitor] 40 mg PO Q48H tab 09/09/23 Rx Enoxaparin [Lovenox] 50 mg SQ DAILY each 09/09/23 Rx Famotidine [Pepcid] 20 mg PO BID tab 09/09/23 Rx INSULIN ASPART (NovoLOG) [NovoLOG 0 unit SQ ACHS each 09/09/23 Rx (formulary)] Losartan [Cozaar] 50 mg PO DAILY tab 09/09/23 Rx QUEtiapine [SEROquel] 12.5 mg PO HS tab 09/09/23 Rx Sennosides-Docusate Sodium 2 each PO HS PRN tab 09/09/23 Rx [Senokot-S] polyethylene glycoL 3350 [Miralax] 17 gm PO DAILY PRN packet 09/09/23 Rx Allergies Allergy/AdvReac Type Severity Reaction Status Date / Time No Known Allergies Allergy Verified 09/03/23 18:11 Physical Exam Vitals: Vital Signs Temp Pulse Pulse Resp BP BP Pulse Ox 09/04/23 07:45 98.3 F 89 19 159/77 94 L 09/04/23 07:33 98.1 F 83 18 146/75 95 09/04/23 01:12 99.4 F 85 22 139/78 92 L 09/03/23 22:18 98.9 F 09/03/23 20:00 100.5 F H 94 18 117/69 97 09/03/23 18:54 101 H 18 140/86 96 09/03/23 16:15 99 18 137/73 100 09/03/23 13:47 98.8 F 103 H 18 148/59 96 GENERAL DESCRIPTION: Elderly male lying in bed, no distress. No tachypnea or accessory muscle of respiration use. HEENT: Shows Pallor , no scleral icterus. Oral mucous membrane is dry. No pharyngeal erythema or thrush NECK: Trachea central, no thyromegaly. LUNGS: Unlabored breathing. Clear to auscultation anteriorly. No wheeze or crackle. HEART: S1, S2, regular rate and rhythm. ABDOMEN: Soft, no tenderness , guarding or rigidity, no organomegaly EXTREMITIES: Left shoulder to have significant swelling redness induration and tenderness SKIN: No rash, no masses palpable. NEUROLOGICAL: The patient is awake, alert, oriented x3, mood and affect normal. Results CBC & Chem 7: 09/09/23 06:40 09/08/23 06:46 Labs: Abnormal Lab Results - Last 24 Hours (Table) 09/03/23 09/03/23 09/04/23 Range/Units 15:15 17:10 04:21 WBC 17.9 H (3.8-10.6) k/uL RBC (4.40-5.60) X 10*6/uL Hgb (13.0-17.0) d/dL Hct (39.6-50.0) % RDW (11.5-14.5) % Neutrophils # 16.5 H (1.3-7.7) k/uL Lymphocytes # 0.5 L (1.0-4.8) k/uL ESR >130 H (0-20) mm/Hr Sodium 131 L 131 L (137-145) mmol/L Potassium 5.2 H (3.5-5.1) mmol/L BUN 30 H 31 H (9-20) mg/dL Creatinine 0.60 L 0.60 L (0.66-1.25) mg/dL Glucose 307 H 232 H (74-99) mg/dL Calcium 8.0 L 7.8 L (8.4-10.2) mg/dL AST 108 H (17-59) U/L Alkaline Phosphatase 146 H 128 H (38-126) U/L C-Reactive Protein 26.1 H (<1.0) mg/dL Total Protein 5.1 L 4.7 L (6.3-8.2) g/dL Albumin 2.3 L 2.1 L (3.5-5.0) g/dL 09/04/23 Range/Units 04:21 WBC 18.62 H (3.8-10.6) k/uL RBC 4.25 L (4.40-5.60) X 10*6/uL Hgb 11.8 L (13.0-17.0) d/dL Hct 36.7 L (39.6-50.0) % RDW 15.2 H (11.5-14.5) % Neutrophils # 16.05 H (1.3-7.7) k/uL Lymphocytes # 0.88 L (1.0-4.8) k/uL ESR (0-20) mm/Hr Sodium (137-145) mmol/L Potassium (3.5-5.1) mmol/L BUN (9-20) mg/dL Creatinine (0.66-1.25) mg/dL Glucose (74-99) mg/dL Calcium (8.4-10.2) mg/dL AST (17-59) U/L Alkaline Phosphatase (38-126) U/L C-Reactive Protein (<1.0) mg/dL Total Protein (6.3-8.2) g/dL Albumin (3.5-5.0) g/dL Microbiology - Last 24 Hours (Table) 09/03/23 15:00 Blood Culture Gram Stain - Preliminary Blood Assessment and Plan (1) Abscess of left shoulder Status: Acute Code(s): L02.414 - CUTANEOUS ABSCESS OF LEFT UPPER LIMB SNOMED Code(s): 36382847 (2) Sepsis Status: Acute Code(s): A41.9 - SEPSIS, UNSPECIFIED ORGANISM SNOMED Code(s): 01975172 Plan: 1patient was in the hospital with sepsis in this patient with a fever elevated white count source likely left shoulder abscesses the patient was noted to have significant swelling redness to the left upper shoulder area with an area of induration and fluctuation and significant tenderness likely from gram-positive skin peggy 2-we will obtain a CT of the left shoulder area if any evidence of abscess patient benefit from surgical drainage and deep culture 3-vancomycin pharmacy to dose with a target trough of 15 while watching kidney function and Vanco trough closely. We will follow on clinical condition and cultures to further adjust medication if needed Thank you for this consultation we will follow the patient along with you Dictation was produced using [employer] dictation software. please excuse any grammatical, word or spelling errors. Time with Patient: Greater than 30
[2023-09-05] MEDS: HYDROcodone/APAP 5-325MG 1 EACH TAB PO PRN (23:44)
[2023-09-06] MEDS: CLINDAMYCIN 900 MG in DEXTROSE 5% IN WATER 50 ML IVPB SCH ×6 (00:29→17:12)
[2023-09-06] MEDS: LACTATED RINGERS 1,000 ML IV SCH (00:32)
[2023-09-06 05:28] LABS: Glucose,Whole Blood 248 mg/dL (70-110)
[2023-09-06 05:56] LABS: African American GFR (CKD) >90 (>60 ml/min/1.73 sqM); Anion Gap 8 mmol/L; Blood Urea Nitrogen 20 mg/dL (9-20); Calcium 7.8 mg/dL (8.4-10.2); Carbon Dioxide 21 mmol/L (22-30); Chloride 103 mmol/L (98-107); Glucose 263 mg/dL (74-99); Non-African American GFR(CKD) >90 (>60 ml/min/1.73 sqM); Potassium 5.4 mmol/L (3.5-5.1); Sodium 132 mmol/L (137-145)
[2023-09-06] MEDS: INSULIN ASPART (NovoLOG) 100 UNIT/ML VIAL SQ SCH ×4 (06:41→20:00)
[2023-09-06] MEDS ORDERED: KETOROLAC 15 MG/ML 1 ML VIAL IVP PRN (10:54)
[2023-09-06] MEDS ORDERED: polyethylene glycoL 3350 17 GM POWD.PACK PO PRN (10:54)
--- NOTE | 2023-09-06 10:58 | P.PN ---
Subjective Patient is a pleasant 73-year-old male came in with compensative left shoulder pain unable to lift it and is also found to have cellulitis of the left upper extremity. Doppler of the left upper extremity did not show any DVT patient denied any history of MRSA presently on ceftezoline and clindamycin, infectious disease was consulted because of the concerns of shoulder joint infection, although [place] surgery was consulted. Patient does have leukocytosis and low- grade fevers. Patient recently visited urgent care who sent him here he visited urgent care because of significant generalized weakness 09/06/2023 Patient is found to have an abscess of the left shoulder patient underwent incision and drainage, patient is presently on ceftezole and and clindamycin and feeling much better today blood cultures are showing strep agalactiae. Patient will require IV antibiotics and the placement in a rehabilitation facility. Patient pain is well controlled. Patient has not been passing gas did not move his bowel yet. Patient will be started on Toradol and senna. Constitutional: Denied any fatigue denied any fever. Cardio vascular: denied any chest pain, palpitations Gastrointestinal denied any nausea vomiting Pulmonary: Denied any shortness of breath cough Neurologic denied any new focal deficits All inpatient medications were reviewed and appropriate changes in these medications as dictated in the interval history and assessment and plan. PHYSICAL EXAMINATION: GENERAL: The patient is alert and oriented x3, not in any acute distress. Well developed, well nourished. HEENT: Pupils are round and equally reacting to light. EOMI. No scleral icterus. No conjunctival pallor. Normocephalic, atraumatic. No pharyngeal erythema. No thyromegaly. CARDIOVASCULAR: S1 and S2 present. No murmurs, rubs, or gallops. PULMONARY: Chest is clear to auscultation, no wheezing or crackles. ABDOMEN: Soft, nontender, nondistended, normoactive bowel sounds. No palpable organomegaly. MUSCULOSKELETAL: Postsurgically packed EXTREMITIES: No cyanosis, clubbing, or pedal edema. NEUROLOGICAL: Gross neurological examination did not reveal any focal deficits. SKIN: Cellulitis is improving Assessment and plan -Abscess and septic arthritis of the left shoulder: Status post incision and drainage, patient blood cultures are positive for group B streptococci. -Bacteremia as mentioned above -Cellulitis of the left upper extremity: Patient is on ceftezolin, clindamycin and with infectious disease consultation. -Hypervolemic hyponatremia patient was switched to normal saline. -Hypertension better today -Benign prostatic hypertrophy continue with Flomax -Hyperlipidemia -Type 2 diabetes mellitus -Osteoarthritis -Coronary artery disease with stents in the past patient was resumed on his home medications -Mild hyperkalemia: Secondary to losartan dose of which was decreased DVT prophylaxis: Lovenox 50 mg subcutaneous Objective - Vital Signs Vital signs: Vital Signs Temp 97.6 F 09/06/23 08:00 Pulse 86 09/06/23 08:00 Resp 17 09/06/23 08:00 BP 138/74 09/06/23 08:00 Pulse Ox 95 09/06/23 01:07 FiO2 Intake & Output 09/05/23 09/06/23 09/06/23 18:59 06:59 18:59 Intake Total 800 100 Output Total 725 805 Balance 75 -705 Weight 102.058 kg Intake: IV 800 100 Output: Drainage 80 Left Shoulder 80 Urine 725 675 Estimated Blood Loss 50 Other: Voiding Method Indwelling Catheter - Labs CBC & Chem 7: 09/05/23 05:38 09/06/23 05:03 Labs: Abnormal Lab Results - Last 24 Hours (Table) 09/05/23 09/05/23 09/05/23 Range/Units 05:38 05:38 12:20 WBC 17.28 H (4.50-10.00) X 10*3/uL RBC 3.64 L (4.40-5.60) X 10*6/uL Hgb 10.2 L (13.0-17.0) d/dL Hct 31.5 L (39.6-50.0) % RDW 15.2 H (11.5-14.5) % Sodium (137-145) mmol/L Potassium (3.5-5.1) mmol/L Carbon Dioxide (22-30) mmol/L Creatinine (0.66-1.25) mg/dL BUN/Creatinine Ratio 30.14 H (12.00-20.00) Ratio Glucose 197 H (70-110) mg/dL POC Glucose (mg/dL) 319 H (70-110) mg/dL Calcium 7.7 L (8.7-10.3) mg/dL 09/05/23 09/05/23 09/05/23 Range/Units 16:57 19:35 21:16 WBC (4.50-10.00) X 10*3/uL RBC (4.40-5.60) X 10*6/uL Hgb (13.0-17.0) d/dL Hct (39.6-50.0) % RDW (11.5-14.5) % Sodium (137-145) mmol/L Potassium (3.5-5.1) mmol/L Carbon Dioxide (22-30) mmol/L Creatinine (0.66-1.25) mg/dL BUN/Creatinine Ratio (12.00-20.00) Ratio Glucose (70-110) mg/dL POC Glucose (mg/dL) 249 H 170 H 184 H (70-110) mg/dL Calcium (8.7-10.3) mg/dL 09/06/23 09/06/23 Range/Units 05:03 05:27 WBC (4.50-10.00) X 10*3/uL RBC (4.40-5.60) X 10*6/uL Hgb (13.0-17.0) d/dL Hct (39.6-50.0) % RDW (11.5-14.5) % Sodium 132 L (137-145) mmol/L Potassium 5.4 H (3.5-5.1) mmol/L Carbon Dioxide 21 L (22-30) mmol/L Creatinine 0.65 L (0.66-1.25) mg/dL BUN/Creatinine Ratio (12.00-20.00) Ratio Glucose 263 H (70-110) mg/dL POC Glucose (mg/dL) 248 H (70-110) mg/dL Calcium 7.8 L (8.7-10.3) mg/dL Microbiology - Last 24 Hours (Table) 09/03/23 15:15 Blood Culture - Preliminary Blood 09/03/23 15:00 Blood Culture Gram Stain - Preliminary Blood Blood Culture - Preliminary Strep agalactiae - (group b)
[2023-09-06] MEDS: LOSARTAN 50 MG TAB PO SCH (11:01)
[2023-09-06] MEDS: ENOXAPARIN 60 MG/0.6 ML SYRINGE SQ SCH (11:03)
[2023-09-06] MEDS: METOPROLOL TARTRATE 50 MG TAB PO SCH ×2 (11:03→19:59)
[2023-09-06] MEDS: FAMOTIDINE 20 MG/2 ML VIAL IV SCH ×2 (11:03→20:00)
[2023-09-06 11:04] LABS: HCT 32.6 % (39.6-50.0); HGB 10.6 d/dL (13.0-17.0); MCH 27.7 pg (27.0-32.0); MCHC 32.5 d/dL (32.0-37.0); MCV 85.3 FL (80.0-97.0); Mean Platelet Volume 10.2 FL (9.5-12.2); NRBC Per 100 WBC 0 X 10*3/uL (0.00-0.01); Platelet Count 434 X 10*3/uL (140-440); RBC 3.82 X 10*6/uL (4.40-5.60); RDW 15.2 % (11.5-14.5); WBC 16.69 X 10*3/uL (4.50-10.00)
[2023-09-06 11:11] LABS: Glucose,Whole Blood 310 mg/dL (70-110)
[2023-09-06] MEDS: SODIUM CHLORIDE 0.9% 1,000 ML IV SCH ×2 (12:28→23:38)
--- NOTE | 2023-09-06 13:03 | P.PN ---
Subjective Progress Note Date: 09/05/23 Principal diagnosis: Left shoulder abscess and bacteremia Patient is a 73-year-old male with a past medical history for diab significantetes mellitus hypertension hyperlipidemia reflux osteoarthritis presenting to the ER for evaluation of left shoulder redness fever and pain, patient did have a CT that has been suggestive of left shoulder abscess and septic joint and the patient also have a positive blood culture with Streptococcus agalactiae On today's evaluation that is 09/05/2023, the patient remains to be afebrile, the patient is breathing comfortably on room air without the need for supplemental oxygen and no shortness of breath, the patient denies having any chest pain or cough, patient denies nausea/vomiting /diarrhea and no abdominal pain, , patient did complain of pain to the left shoulder area the some relief with the pain medication. Patient white count is slightly down to 17.2, creatinine 0.7, blood culture with strep cocci agalactiae Objective - Vital Signs Vital signs: Vital Signs Temp 97.9 F 09/05/23 14:00 Pulse 86 09/05/23 14:00 Resp 16 09/05/23 14:00 BP 122/66 09/05/23 14:00 Pulse Ox 95 09/05/23 14:00 FiO2 Intake & Output 09/04/23 09/05/23 09/05/23 18:59 06:59 18:59 Output Total 860 850 Balance -860 -850 Weight 102.058 kg Output: Urine 110 850 Straight 750 Post Void Residual 750 Other: # Voids 2 # Bowel Movements 0 - Exam GENERAL DESCRIPTION: An elderly male lying in bed in no distress RESPIRATORY SYSTEM: Unlabored breathing , decreased breath sounds at bases HEART: S1 S2 regular rate and rhythm , ABDOMEN: Soft , no tenderness Left shoulder did have a area swelling redness induration and tenderness - Labs CBC & Chem 7: 09/09/23 06:40 09/08/23 06:46 Labs: Abnormal Lab Results - Last 24 Hours (Table) 09/04/23 09/05/23 09/05/23 Range/Units 20:52 05:38 05:38 WBC 17.28 H (4.50-10.00) X 10*3/uL RBC 3.64 L (4.40-5.60) X 10*6/uL Hgb 10.2 L (13.0-17.0) d/dL Hct 31.5 L (39.6-50.0) % RDW 15.2 H (11.5-14.5) % Creatinine 0.62 L (0.66-1.25) mg/dL BUN/Creatinine Ratio (12.00-20.00) Ratio Glucose (70-110) mg/dL POC Glucose (mg/dL) 217 H (70-110) mg/dL Calcium (8.7-10.3) mg/dL 09/05/23 09/05/23 09/05/23 Range/Units 05:38 06:17 12:20 WBC (4.50-10.00) X 10*3/uL RBC (4.40-5.60) X 10*6/uL Hgb (13.0-17.0) d/dL Hct (39.6-50.0) % RDW (11.5-14.5) % Creatinine (0.66-1.25) mg/dL BUN/Creatinine Ratio 30.14 H (12.00-20.00) Ratio Glucose 197 H (70-110) mg/dL POC Glucose (mg/dL) 187 H 319 H (70-110) mg/dL Calcium 7.7 L (8.7-10.3) mg/dL Microbiology - Last 24 Hours (Table) 09/03/23 15:00 Blood Culture Gram Stain - Preliminary Blood Blood Culture - Preliminary Strep agalactiae - (group b) 09/03/23 15:15 Blood Culture - Preliminary Blood Assessment and Plan (1) Abscess of left shoulder Status: Acute Code(s): L02.414 - CUTANEOUS ABSCESS OF LEFT UPPER LIMB SNOMED Code(s): 00420976 (2) Bacteremia due to Streptococcus Status: Acute Code(s): R78.81 - BACTEREMIA; B95.5 - UNSP STREPTOCOCCUS THE CAUSE OF DISEASES CLASSD [facility] SNOMED Code(s): 455460506160 Plan: 1patient was in the hospital with sepsis in this patient with a fever elevated white count source likely left shoulder abscesses the patient was noted to have significant swelling redness to the left upper shoulder area with an area of induration and fluctuation and significant tenderness likely from gram-positive skin peggy 2- CT of the left shoulder area suggestive of the abscess orthopedic has been consulted 3-blood culture positive for strep cocci agalactiae likely the source of bacteremia the left shoulder abscess 4-vancomycin discontinued patient started on cefazolin and clindamycin and monitor clinical course closely Dictation was produced using [email or web address] dictation software. please excuse any grammatical, word or spelling errors. Time with Patient: Less than 30
--- NOTE | 2023-09-06 13:05 | P.PN ---
Subjective Progress Note Date: 09/06/23 Principal diagnosis: Left shoulder abscess and bacteremia Patient is a 73-year-old male with a past medical history for diab significantetes mellitus hypertension hyperlipidemia reflux osteoarthritis presenting to the ER for evaluation of left shoulder redness fever and pain, patient did have a CT that has been suggestive of left shoulder abscess and septic joint and the patient also have a positive blood culture with Streptococcus agalactiae, patient is status post surgical drainage of the left shoulder abscess and application of wound VAC on 09/05/2023 On today's evaluation that is 09/06/2023, the patient continues to be afebrile the patient is breathing comfortably on room air, the patient denies chest pain, shortness of breath or cough, patient denies abdominal pain, no nausea/vomiting and no diarrhea , the patient pain to the left shoulder area has decreased in intensity Patient white count is slightly down 16.69, creatinine 0.65, blood culture with Streptococcus agalactiae Objective - Vital Signs Vital signs: Vital Signs Temp 97.6 F 09/06/23 08:00 Pulse 86 09/06/23 08:00 Resp 17 09/06/23 08:00 BP 138/74 09/06/23 08:00 Pulse Ox 95 09/06/23 01:07 FiO2 Intake & Output 09/05/23 09/06/23 09/06/23 18:59 06:59 18:59 Intake Total 800 100 Output Total 725 805 Balance 75 -705 Weight 102.058 kg Intake: IV 800 100 Output: Drainage 80 Left Shoulder 80 Urine 725 675 Estimated Blood Loss 50 Other: Voiding Method Indwelling Catheter - Exam GENERAL DESCRIPTION: An elderly male lying in bed in no distress RESPIRATORY SYSTEM: Unlabored breathing , decreased breath sounds at bases HEART: S1 S2 regular rate and rhythm , ABDOMEN: Soft , no tenderness Left shoulder is covered with a wound VAC - Labs CBC & Chem 7: 09/09/23 06:40 09/08/23 06:46 Labs: Abnormal Lab Results - Last 24 Hours (Table) 09/05/23 09/05/23 09/05/23 Range/Units 16:57 19:35 21:16 WBC (4.50-10.00) X 10*3/uL RBC (4.40-5.60) X 10*6/uL Hgb (13.0-17.0) d/dL Hct (39.6-50.0) % RDW (11.5-14.5) % Sodium (137-145) mmol/L Potassium (3.5-5.1) mmol/L Carbon Dioxide (22-30) mmol/L Creatinine (0.66-1.25) mg/dL Glucose (74-99) mg/dL POC Glucose (mg/dL) 249 H 170 H 184 H (70-110) mg/dL Calcium (8.4-10.2) mg/dL 09/06/23 09/06/23 09/06/23 Range/Units 05:03 05:03 05:27 WBC 16.69 H (4.50-10.00) X 10*3/uL RBC 3.82 L (4.40-5.60) X 10*6/uL Hgb 10.6 L (13.0-17.0) d/dL Hct 32.6 L (39.6-50.0) % RDW 15.2 H (11.5-14.5) % Sodium 132 L (137-145) mmol/L Potassium 5.4 H (3.5-5.1) mmol/L Carbon Dioxide 21 L (22-30) mmol/L Creatinine 0.65 L (0.66-1.25) mg/dL Glucose 263 H (74-99) mg/dL POC Glucose (mg/dL) 248 H (70-110) mg/dL Calcium 7.8 L (8.4-10.2) mg/dL 09/06/23 Range/Units 11:10 WBC (4.50-10.00) X 10*3/uL RBC (4.40-5.60) X 10*6/uL Hgb (13.0-17.0) d/dL Hct (39.6-50.0) % RDW (11.5-14.5) % Sodium (137-145) mmol/L Potassium (3.5-5.1) mmol/L Carbon Dioxide (22-30) mmol/L Creatinine (0.66-1.25) mg/dL Glucose (74-99) mg/dL POC Glucose (mg/dL) 310 H (70-110) mg/dL Calcium (8.4-10.2) mg/dL Microbiology - Last 24 Hours (Table) 10/16/23 12:00 Gram Stain - Preliminary Aspirate 09/03/23 15:15 Blood Culture - Preliminary Blood 09/03/23 15:00 Blood Culture Gram Stain - Preliminary Blood Blood Culture - Preliminary Strep agalactiae - (group b) Assessment and Plan (1) Abscess of left shoulder Status: Acute Code(s): L02.414 - CUTANEOUS ABSCESS OF LEFT UPPER LIMB SNOMED Code(s): 34377428 (2) Bacteremia due to Streptococcus Status: Acute Code(s): R78.81 - BACTEREMIA; B95.5 - UNSP STREPTOCOCCUS THE CAUSE OF DISEASES CLASSD [facility] SNOMED Code(s): 690991301678 Plan: 1patient was in the hospital with sepsis in this patient with a fever elevated white count source likely left shoulder abscesses the patient was noted to have significant swelling redness to the left upper shoulder area with an area of induration and fluctuation and significant tenderness likely from gram-positive skin peggy 2- CT of the left shoulder area suggestive of the abscess orthopedic has been consulted 3-blood culture positive for strep cocci agalactiae likely the source of bacteremia the left shoulder abscess 4-patient to continue with cefazolin and clindamycin will need a PICC line for outpatient IV antibiotic therapy discussed with the orthopedics patient did have multiple questions and concerns has been answered in Layman terms Dictation was produced using [employer] dictation software. please excuse any grammatical, word or spelling errors. Time with Patient: Less than 30
--- NOTE | 2023-09-06 13:09 | P.PN ---
Subjective Progress Note Date: 09/06/23 This patient is a 73- year old male who is status-post left shoulder I&D on 09/05/23. Patient is examined bedside this afternoon with Dr. Ball. He states his shoulder pain has improved significantly. He states he has been able to rest which he was not able to do pre-op due to his pain. He remains on IV antibiotics per infectious disease. No new complaints. Objective - Vital Signs Vital signs: Vital Signs Temp 97.6 F 09/06/23 08:00 Pulse 86 09/06/23 08:00 Resp 17 09/06/23 08:00 BP 138/74 09/06/23 08:00 Pulse Ox 95 09/06/23 01:07 FiO2 Intake & Output 09/05/23 09/06/23 09/06/23 18:59 06:59 18:59 Intake Total 800 100 Output Total 725 805 Balance 75 -705 Weight 102.058 kg Intake: IV 800 100 Output: Drainage 80 Left Shoulder 80 Urine 725 675 Estimated Blood Loss 50 Other: Voiding Method Indwelling Catheter - Exam On examination, patient is sitting up in bed in no apparent distress. He is r esting comfortably. On inspection of the left shoulder, there is a wound vac in place that has a good seal at this time. There is also a hemovac drain in place. The left upper extremity is covered with an SHAYY wrap and placed in a sling. The hand is warm and well perfused. Motor and sensory function is intact of the left upper extremity. - Labs CBC & Chem 7: 09/06/23 05:03 09/06/23 05:03 Labs: Abnormal Lab Results - Last 24 Hours (Table) 09/05/23 09/05/23 09/05/23 Range/Units 16:57 19:35 21:16 WBC (4.50-10.00) X 10*3/uL RBC (4.40-5.60) X 10*6/uL Hgb (13.0-17.0) d/dL Hct (39.6-50.0) % RDW (11.5-14.5) % Sodium (137-145) mmol/L Potassium (3.5-5.1) mmol/L Carbon Dioxide (22-30) mmol/L Creatinine (0.66-1.25) mg/dL Glucose (74-99) mg/dL POC Glucose (mg/dL) 249 H 170 H 184 H (70-110) mg/dL Calcium (8.4-10.2) mg/dL 09/06/23 09/06/23 09/06/23 Range/Units 05:03 05:03 05:27 WBC 16.69 H (4.50-10.00) X 10*3/uL RBC 3.82 L (4.40-5.60) X 10*6/uL Hgb 10.6 L (13.0-17.0) d/dL Hct 32.6 L (39.6-50.0) % RDW 15.2 H (11.5-14.5) % Sodium 132 L (137-145) mmol/L Potassium 5.4 H (3.5-5.1) mmol/L Carbon Dioxide 21 L (22-30) mmol/L Creatinine 0.65 L (0.66-1.25) mg/dL Glucose 263 H (74-99) mg/dL POC Glucose (mg/dL) 248 H (70-110) mg/dL Calcium 7.8 L (8.4-10.2) mg/dL 09/06/23 Range/Units 11:10 WBC (4.50-10.00) X 10*3/uL RBC (4.40-5.60) X 10*6/uL Hgb (13.0-17.0) d/dL Hct (39.6-50.0) % RDW (11.5-14.5) % Sodium (137-145) mmol/L Potassium (3.5-5.1) mmol/L Carbon Dioxide (22-30) mmol/L Creatinine (0.66-1.25) mg/dL Glucose (74-99) mg/dL POC Glucose (mg/dL) 310 H (70-110) mg/dL Calcium (8.4-10.2) mg/dL Microbiology - Last 24 Hours (Table) 09/05/23 12:00 Gram Stain - Preliminary Aspirate 09/03/23 15:15 Blood Culture - Preliminary Blood 09/03/23 15:00 Blood Culture Gram Stain - Preliminary Blood Blood Culture - Preliminary Strep agalactiae - (group b) Assessment and Plan Assessment: Septic arthritis left shoulder status-post left shoulder I&D on 09/05/23. Post- op day #1. Plan: - Keep wound vac in place. Do not remove. Keep hemovac drain in place. - Left upper extremity is to remain immobilized in sling. He may perform gentle ROM of the elbow, wrist, finger as tolerated. - Cultures from aspiration 09/05 pending. Continue IV antibiotics per infectious disease. - Pain management as needed. - We will follow patient as he remains inpatient. We will plan to remove wound vac and drain tomorrow and re-assess incision.
[2023-09-06 16:41] LABS: Glucose,Whole Blood 322 mg/dL (70-110)
[2023-09-06 19:27] LABS: Glucose,Whole Blood 254 mg/dL (70-110)
[2023-09-06] MEDS: TAMSULOSIN 0.4 MG CAP.ER.24H PO SCH (19:59)
[2023-09-06] MEDS: ASPIRIN 81 MG PO SCH (19:59)
[2023-09-06] MEDS: HYDROcodone/APAP 5-325MG 1 EACH TAB PO PRN (20:00)
[2023-09-06] MEDS: ATORVASTATIN 20 MG TAB PO SCH (20:00)
[2023-09-07] MEDS: CLINDAMYCIN 900 MG in DEXTROSE 5% IN WATER 50 ML IVPB SCH ×6 (00:54→17:06)
[2023-09-07 05:22] LABS: Glucose,Whole Blood 196 mg/dL (70-110)
[2023-09-07] MEDS: INSULIN ASPART (NovoLOG) 100 UNIT/ML VIAL SQ SCH ×4 (06:41→20:50)
[2023-09-07] MEDS: FAMOTIDINE 20 MG/2 ML VIAL IV SCH ×2 (08:13→20:51)
[2023-09-07] MEDS: LOSARTAN 50 MG TAB PO SCH (08:13)
[2023-09-07] MEDS: METOPROLOL TARTRATE 50 MG TAB PO SCH ×2 (08:13→20:50)
[2023-09-07] MEDS: ENOXAPARIN 60 MG/0.6 ML SYRINGE SQ SCH (08:14)
[2023-09-07 10:55] LABS: HCT 32.4 % (39.6-50.0); HGB 10.6 d/dL (13.0-17.0); MCH 28.4 pg (27.0-32.0); MCHC 32.7 d/dL (32.0-37.0); MCV 86.9 FL (80.0-97.0); NRBC Per 100 WBC 0 X 10*3/uL (0.00-0.01); Platelet Count 442 X 10*3/uL (140-440); RBC 3.73 X 10*6/uL (4.40-5.60); RDW 15.1 % (11.5-14.5); WBC 10.95 X 10*3/uL (4.50-10.00)
[2023-09-07 11:11] LABS: BUN/Creat Ratio 27.57 Ratio (12.00-20.00); Blood Urea Nitrogen 19.3 mg/dL (9.0-27.0); Calcium 7.6 mg/dL (8.7-10.3); Carbon Dioxide 21.6 mmol/L (21.6-31.8); Chloride 104 mmol/L (96-109); Glucose 200 mg/dL (70-110); Potassium 4.8 mmol/L (3.5-5.5); Sodium 135 mmol/L (135-145)
[2023-09-07 11:35] LABS: Glucose,Whole Blood 222 mg/dL (70-110)
--- NOTE | 2023-09-07 12:00 | P.PN ---
Subjective Progress Note Date: 09/07/23 Principal diagnosis: Left shoulder abscess and bacteremia Patient is a 73-year-old male with a past medical history for diab significantetes mellitus hypertension hyperlipidemia reflux osteoarthritis presenting to the ER for evaluation of left shoulder redness fever and pain, patient did have a CT that has been suggestive of left shoulder abscess and septic joint and the patient also have a positive blood culture with Streptococcus agalactiae, patient is status post surgical drainage of the left shoulder abscess and application of wound VAC on 09/05/2023 On today's evaluation that is 09/07/2023, the patient remains to be afebrile the patient is breathing comfortably on room air, the patient denies chest pain, shortness of breath or cough, patient denies nausea/vomiting , no diarrhea and no abdominal pain, the patient pain to the left shoulder area is controlled with current medication Patient white count is down to 10.95, creatinine 0.7, blood culture with Streptococcus agalactiae Objective - Vital Signs Vital signs: Vital Signs Temp 98.4 F 09/07/23 07:21 Pulse 81 09/07/23 07:21 Resp 16 09/07/23 07:21 BP 148/87 09/07/23 07:21 Pulse Ox 96 09/07/23 07:21 FiO2 Intake & Output 09/06/23 09/07/23 09/07/23 18:59 06:59 18:59 Output Total 600 1400 300 Balance -600 -1400 -300 Output: Urine 600 1400 300 Other: Voiding Method Indwelling Catheter - Exam GENERAL DESCRIPTION: An elderly male lying in bed in no distress RESPIRATORY SYSTEM: Unlabored breathing , decreased breath sounds at bases HEART: S1 S2 regular rate and rhythm , ABDOMEN: Soft , no tenderness Left shoulder is covered with a wound VAC - Labs CBC & Chem 7: 09/07/23 06:00 09/07/23 06:00 Labs: Abnormal Lab Results - Last 24 Hours (Table) 09/06/23 09/06/23 09/07/23 Range/Units 16:38 19:26 05:20 WBC (4.50-10.00) X 10*3/uL RBC (4.40-5.60) X 10*6/uL Hgb (13.0-17.0) d/dL Hct (39.6-50.0) % RDW (11.5-14.5) % Plt Count (140-440) X 10*3/uL BUN/Creatinine Ratio (12.00-20.00) Ratio Glucose (70-110) mg/dL POC Glucose (mg/dL) 322 H 254 H 196 H (70-110) mg/dL Calcium (8.7-10.3) mg/dL 09/07/23 09/07/23 09/07/23 Range/Units 06:00 06:00 11:32 WBC 10.95 H (4.50-10.00) X 10*3/uL RBC 3.73 L (4.40-5.60) X 10*6/uL Hgb 10.6 L (13.0-17.0) d/dL Hct 32.4 L (39.6-50.0) % RDW 15.1 H (11.5-14.5) % Plt Count 442 H (140-440) X 10*3/uL BUN/Creatinine Ratio 27.57 H (12.00-20.00) Ratio Glucose 200 H (70-110) mg/dL POC Glucose (mg/dL) 222 H (70-110) mg/dL Calcium 7.6 L (8.7-10.3) mg/dL Microbiology - Last 24 Hours (Table) 09/03/23 15:15 Blood Culture - Preliminary Blood 09/05/23 12:00 Gram Stain - Preliminary Aspirate Body Fluid Culture - Preliminary Strep agalactiae - (group b) 09/03/23 15:00 Blood Culture Gram Stain - Final Blood Blood Culture - Final Strep agalactiae - (group b) Assessment and Plan (1) Abscess of left shoulder Current Visit: Yes Status: Acute Code(s): L02.414 - CUTANEOUS ABSCESS OF LEFT UPPER LIMB SNOMED Code(s): 57226510 (2) Bacteremia due to Streptococcus Current Visit: Yes Status: Acute Code(s): R78.81 - BACTEREMIA; B95.5 - UNSP STREPTOCOCCUS THE CAUSE OF DISEASES [facility] SNOMED Code(s): 750692798887 Plan: 1patient was in the hospital with sepsis in this patient with a fever elevated white count source likely left shoulder abscesses the patient was noted to have significant swelling redness to the left upper shoulder area with an area of induration and fluctuation and significant tenderness likely from gram-positive skin peggy 2- CT of the left shoulder area suggestive of the abscess patient is status post surgical drainage of this abscess and application of wound VAC 3-blood culture positive for strep cocci agalactiae likely the source of bacteremia the left shoulder abscess 4-patient to continue with cefazolin and clindamycin, patient will need a PICC line for outpatient IV antibiotic therapy Dictation was produced using [employer] dictation software. please excuse any grammatical, word or spelling errors. Time with Patient: Less than 30
[2023-09-07 16:37] LABS: Glucose,Whole Blood 185 mg/dL (70-110)
[2023-09-07] MEDS: SODIUM CHLORIDE 0.9% 1,000 ML IV SCH (17:21)
--- NOTE | 2023-09-07 19:30 | P.PN ---
Subjective Progress Note Date: 09/07/23 This patient is a 73- year old male who is status-post left shoulder I&D on 09/05/23. Today is post-operative day #2. Patient is examined bedside this evening with Dr. Ball. His shoulder pain continues to improve. Cultures from left shoulder aspiration positive for group B strep. No new complaints. Objective - Vital Signs Vital signs: Vital Signs Temp 98.4 F 09/07/23 07:21 Pulse 81 09/07/23 07:21 Resp 16 09/07/23 07:21 BP 148/87 09/07/23 07:21 Pulse Ox 96 09/07/23 07:21 FiO2 Intake & Output 09/07/23 09/07/23 09/08/23 06:59 18:59 06:59 Output Total 1400 1500 Balance -1400 -1500 Output: Urine 1400 1500 Other: Voiding Method Indwelling Catheter - Exam On examination, patient is sitting up in bed in no apparent distress. He is resting comfortably. On inspection of the left shoulder, there is a wound vac in place that has a good seal at this time. There is also a hemovac drain in place. The left upper extremity is covered with an MOOKIE wrap and placed in a sling. The hand is warm and well perfused. Motor and sensory function is intact of the left upper extremity. Mookie wrap was taken down. Wound VAC is taken down and reveals a well healing incision in the anterior shoulder with intact nylon sutures. No active drainag e. Very mild surrounding erythema. Hemovac drain is removed and dressing placed over drain site and over incision. - Labs CBC & Chem 7: 09/07/23 06:00 09/07/23 06:00 Labs: Abnormal Lab Results - Last 24 Hours (Table) 09/06/23 09/07/23 09/07/23 Range/Units 19:26 05:20 06:00 WBC 10.95 H (4.50-10.00) X 10*3/uL RBC 3.73 L (4.40-5.60) X 10*6/uL Hgb 10.6 L (13.0-17.0) d/dL Hct 32.4 L (39.6-50.0) % RDW 15.1 H (11.5-14.5) % Plt Count 442 H (140-440) X 10*3/uL BUN/Creatinine Ratio (12.00-20.00) Ratio Glucose (70-110) mg/dL POC Glucose (mg/dL) 254 H 196 H (70-110) mg/dL Calcium (8.7-10.3) mg/dL 09/07/23 09/07/23 09/07/23 Range/Units 06:00 11:32 16:35 WBC (4.50-10.00) X 10*3/uL RBC (4.40-5.60) X 10*6/uL Hgb (13.0-17.0) d/dL Hct (39.6-50.0) % RDW (11.5-14.5) % Plt Count (140-440) X 10*3/uL BUN/Creatinine Ratio 27.57 H (12.00-20.00) Ratio Glucose 200 H (70-110) mg/dL POC Glucose (mg/dL) 222 H 185 H (70-110) mg/dL Calcium 7.6 L (8.7-10.3) mg/dL Microbiology - Last 24 Hours (Table) 09/03/23 15:15 Blood Culture - Preliminary Blood 09/05/23 12:00 Gram Stain - Preliminary Aspirate Body Fluid Culture - Preliminary Strep agalactiae - (group b) Assessment and Plan Assessment: Septic arthritis left shoulder status-post left shoulder I&D on 09/05/23. Post- op day #2. Plan: - Wound vac and hemovac drain removed this evening. New Opsite dressings placed. Keep in place. - Left upper extremity is to remain immobilized in sling for comfort. May remove as tolerated. He may perform gentle ROM of the elbow, wrist, finger as tolerated. - Cultures from aspiration 09/05 positive for group B strep. Continue IV antibiotics per infectious disease. - Pain management as needed. - We will follow patient peripherally as he remains inpatient. He will need follow-up with PCP for referral to shoulder surgeon to discuss further treatment following discharge.
[2023-09-07 20:26] LABS: Glucose,Whole Blood 234 mg/dL (70-110)
[2023-09-07] MEDS: ASPIRIN 81 MG PO SCH (20:50)
[2023-09-07] MEDS: TAMSULOSIN 0.4 MG CAP.ER.24H PO SCH (20:50)
[2023-09-07] MEDS: QUEtiapine 25 MG TAB PO SCH (20:50)
[2023-09-07] MEDS: ATORVASTATIN 40 MG TAB PO SCH (20:50)
[2023-09-08 05:45] LABS: Glucose,Whole Blood 147 mg/dL (70-110)
[2023-09-08] MEDS: SODIUM CHLORIDE 0.9% 1,000 ML IV SCH ×2 (06:01→15:21)
[2023-09-08] MEDS: CLINDAMYCIN 900 MG in DEXTROSE 5% IN WATER 50 ML IVPB SCH ×6 (06:01→15:20)
--- NOTE | 2023-09-08 06:21 | P.PN ---
Subjective Progress Note Date: 09/07/23 Patient is a pleasant 73-year-old male came in with compensative left shoulder pain unable to lift it and is also found to have cellulitis of the left upper extremity. Doppler of the left upper extremity did not show any DVT patient denied any history of MRSA presently on ceftezoline and clindamycin, infectious disease was consulted because of the concerns of shoulder joint infection, although [place] surgery was consulted. Patient does have leukocytosis and low- grade fevers. Patient recently visited urgent care who sent him here he visited urgent care because of significant generalized weakness 09/06/2023 Patient is found to have an abscess of the left shoulder patient underwent incision and drainage, patient is presently on ceftezole and and clindamycin and feeling much better today blood cultures are showing strep agalactiae. Patient will require IV antibiotics and the placement in a rehabilitation facility. Patient pain is well controlled. Patient has not been passing gas did not move his bowel yet. Patient will be started on Toradol and senna. 09/07/2023 Patient is seen and evaluated in follow-up today status post incision and drainage with wound VAC of the left shoulder into the chest area. Patient is afebrile with no reported chest pain although does report chest wall tenderness and denies shortness of breath. Patient having periods of confusion and would recommend limiting IV narcotics and will add low-dose Seroquel at night. Infectious disease is following maintained on antibiotics and awaiting cultures. Pulmonary culture showing strep agalactae group b and awaiting finalized cultures. Review of systems: Constitutional: Denied any fatigue denied any fever. Cardio vascular: denied any chest pain, palpitations Gastrointestinal denied any nausea vomiting Pulmonary: Denied any shortness of breath cough Neurologic denied any new focal deficits, reports limited shoulder movement and left shoulder pain All inpatient medications were reviewed and appropriate changes in these medications as dictated in the interval history and assessment and plan. PHYSICAL EXAMINATION: GENERAL: The patient is alert and oriented x2, not in any acute distress. Appea rs to be somewhat confused Well developed, well nourished. Obese HEENT: Pupils are round and equally reacting to light. EOMI. No scleral icterus. No conjunctival pallor. Normocephalic, atraumatic. No pharyngeal erythema. No thyromegaly. CARDIOVASCULAR: S1 and S2 present. No murmurs, rubs, or gallops. PULMONARY: Chest is clear to auscultation, no wheezing or crackles. ABDOMEN: Soft, nontender, nondistended, normoactive bowel sounds. No palpable organomegaly. MUSCULOSKELETAL: Postsurgically wound VAC with good suction seal of the left shoulder noted on exam EXTREMITIES: No cyanosis, clubbing, or pedal edema. Left upper extremity swelling sling noted NEUROLOGICAL: Gross neurological examination did not reveal any focal deficits. Diffusely weak SKIN: Cellulitis is improving Assessment: -Abscess and septic arthritis of the left shoulder: Status post incision and drainage, patient blood cultures are positive for group B streptococci. -Bacteremia as mentioned above with repeat cultures negative -Acute confusion, multifactorial, likely toxic encephalopathy with narcotic medication effect as well as hospital-acquired delirium -Cellulitis of the left upper extremity -Hypovolemic hyponatremia , improving -Hypertension -Benign prostatic hypertrophy continue with Flomax -Hyperlipidemia -Type 2 diabetes mellitus -Osteoarthritis -Coronary artery disease with stents in the past -Mild hyperkalemia: Secondary to losartan dose , improved -DVT prophylaxis: Lovenox 50 mg subcutaneous -GI prophylaxis -Full code Plan: Patient continues with wound VAC in orthopedics following plans and removal today and patient is continued on left shoulder sling Infectious disease following as well with preliminary culture showing group B strep and awaiting finalized cultures to determine discharge antibiotics Patient with some acute confusion with concerns of possible medication effect and/or hospital-acquired delirium. Encouraged opening the shades of the windows and reorienting frequently and will add Seroquel low-dose at night. Recommend discontinuing IV narcotic use and only use oral narcotics for severe pain Will discuss further with case management/social work on discharge planning this patient will likely need rehab Recommend physical therapy evaluation The impression and plan of care has been dictated by [place], Nurse Practitioner as directed. Dr. Chuyita MD I have performed a history and examination and MDM of this patient, discussed the same with the dictator, and agree with the dictator's assessment and plan as written ,documented as a scribe. Based on total visit time, I have performed more than 50% of the visit. Objective - Vital Signs Vital signs: Vital Signs Temp 98.4 F 09/07/23 07:21 Pulse 81 09/07/23 07:21 Resp 16 09/07/23 07:21 BP 148/87 09/07/23 07:21 Pulse Ox 96 1018/23 07:21 FiO2 Intake & Output 09/06/23 09/07/23 09/07/23 18:59 06:59 18:59 Output Total 600 1400 Balance -600 -1400 Output: Urine 600 1400 Other: Voiding Method Indwelling Catheter - Labs CBC & Chem 7: 09/07/23 06:00 09/07/23 06:00 Labs: Abnormal Lab Results - Last 24 Hours (Table) 09/06/23 09/06/23 09/06/23 Range/Units 05:03 11:10 16:38 WBC 16.69 H (4.50-10.00) X 10*3/uL RBC 3.82 L (4.40-5.60) X 10*6/uL Hgb 10.6 L (13.0-17.0) d/dL Hct 32.6 L (39.6-50.0) % RDW 15.2 H (11.5-14.5) % POC Glucose (mg/dL) 310 H 322 H (70-110) mg/dL 09/06/23 09/07/23 Range/Units 19:26 05:20 WBC (4.50-10.00) X 10*3/uL RBC (4.40-5.60) X 10*6/uL Hgb (13.0-17.0) d/dL Hct (39.6-50.0) % RDW (11.5-14.5) % POC Glucose (mg/dL) 254 H 196 H (70-110) mg/dL Microbiology - Last 24 Hours (Table) 09/03/23 15:15 Blood Culture - Preliminary Blood 09/05/23 12:00 Gram Stain - Preliminary Aspirate Body Fluid Culture - Preliminary Strep agalactiae - (group b) 09/03/23 15:00 Blood Culture Gram Stain - Final Blood Blood Culture - Final Strep agalactiae - (group b)
[2023-09-08 06:44] LABS: Appearance,Urine Clear (Clear); Bilirubin,Urine Negative (Negative); Blood,Urine Large (Negative); Color,Urine Light Yellow; Glucose,Urine (UA) Negative (Negative); Ketones,Urine Negative (Negative); Leukocyte Esterase,Urine Moderate (Negative); Mucus,Urine Rare /hpf; Nitrite,Urine Negative (Negative); PH, Urine 6.5 (5.0-8.0); Protein,Urine Trace (Negative); RBC,Urine >182 /hpf (0-5); Specific Gravity,Urine 1.013 (1.001-1.035); Squamous Epithelial Cell,Urine <1 /hpf (0-4); Urobilinogen,Urine <2.0 mg/dL (<2.0); WBC,Urine 57 /hpf (0-5)
[2023-09-08] MEDS: INSULIN ASPART (NovoLOG) 100 UNIT/ML VIAL SQ SCH ×5 (06:50→22:07)
[2023-09-08 07:09] LABS: Basophils % (A) 0 %; Eosinophils # (A) 0.1 k/uL (0-0.7); Eosinophils % (A) 2 %; HCT 32.9 % (39.0-53.0); Lymphocytes # (A) 1.1 k/uL (1.0-4.8); Lymphocytes % (A) 11 %; MCH 29.1 pg (25.0-35.0); MCHC 33.4 g/dL (31.0-37.0); Mean Platelet Volume 7.4; Monocytes # (A) 0.4 k/uL (0-1.0); Monocytes % (A) 4 %; Neutrophils # (A) 7.8 k/uL (1.3-7.7); Neutrophils % (A) 82 %; Platelet Count 534 k/uL (150-450); RBC 3.78 m/uL (4.30-5.90); RDW 14.3 % (11.5-15.5); WBC 9.5 k/uL (3.8-10.6)
[2023-09-08 07:23] LABS: ALT 26 U/L (4-49); AST 39 U/L (17-59); African American GFR (CKD) >90 (>60 ml/min/1.73 sqM); Albumin 2.2 g/dL (3.5-5.0); Albumin/Globulin Ratio 0.8; Alkaline Phosphatase 105 U/L (38-126); Anion Gap 9 mmol/L; Blood Urea Nitrogen 12 mg/dL (9-20); Calcium 7.7 mg/dL (8.4-10.2); Carbon Dioxide 19 mmol/L (22-30); Chloride 107 mmol/L (98-107); Globulin 2.7 g/dL; Glucose 147 mg/dL (74-99); Magnesium 2.1 mg/dL (1.6-2.3); Non-African American GFR(CKD) >90 (>60 ml/min/1.73 sqM); Potassium 4.5 mmol/L (3.5-5.1); Sodium 135 mmol/L (137-145); Total Bilirubin 0.5 mg/dL (0.2-1.3); Total Protein 4.9 g/dL (6.3-8.2)
[2023-09-08] MEDS: LOSARTAN 50 MG TAB PO SCH (08:24)
[2023-09-08] MEDS: METOPROLOL TARTRATE 50 MG TAB PO SCH ×2 (08:24→22:04)
[2023-09-08] MEDS: ENOXAPARIN 60 MG/0.6 ML SYRINGE SQ SCH (08:25)
--- NOTE | 2023-09-08 08:25 | XR ---
EXAMINATION TYPE: XR chest 1V portable DATE OF EXAM: 09/08/2023 HISTORY: Shortness of breath. COMPARISON: None. TECHNIQUE: Single view of the chest is submitted. FINDINGS: Demonstrated are scattered senescent parenchymal change. Focal infiltrate and/or atelectasis right lower lobe with pleural thickening or small effusion seen p osteriorly. The heart is stable. Hilar and mediastinal structures are within normal limits. Degenerative changes are seen of the dorsal spine. IMPRESSION: 1. Focal infiltrate and/or atelectasis right lower lobe with pleural thickening or small effusion se en posteriorly.
[2023-09-08 08:39] VITALS: BMI 32.3
[2023-09-08] MEDS: FAMOTIDINE 20 MG/2 ML VIAL IV SCH (09:30)
[2023-09-08 11:38] LABS: Glucose,Whole Blood 240 mg/dL (70-110)
[2023-09-08 16:22] LABS: Glucose,Whole Blood 183 mg/dL (70-110)
--- NOTE | 2023-09-08 19:26 | P.GSCN ---
History of Present Illness Consult date: 09/08/23 Reason for Consult: Hematuria Requesting physician: Arthur Ball History of present illness: The patient is a 73-year-old white male hospitalized with septic left shoulder arthritis. On September 05, he underwent irrigation and excisional debridement of left shoulder joint. He has a Lay catheter for postoperative urinary retention. He was restless yesterday and earlier today was noted to have hematuria. He denies any pre-existing hematuria. He does have a history of urinary retention, for which he performed intermittent self-catheterization prior to undergoing a TURP [address] Pillai in [place]. He states that he continues to take tamsulosin. Review of Systems - Genitourinary Reports as per HPI Past Medical History Past Medical History: Diabetes Mellitus, GERD/Reflux, Hyperlipidemia, Hypertensi on, Osteoarthritis (OA) Additional Past Medical History / Comment(s): diet control diabetic, ARTHRITIS IN KNEES, SINUS PROBLEMS, STRESS TEST A WEEK AGO, HAD PNE AND SHINGLES VACCINES FEW YEARS AGO NOT SURE OF DATE. History of Any Multi-Drug Resistant Organisms: None Reported Past Surgical History: Heart Catheterization With Stent Additional Past Surgical History / Comment(s): dental extractions, 08/31/16 HEART CATH Past Anesthesia/Blood Transfusion Reactions: No Reported Reaction Date of Last Stent Placement:: 2007 Past Psychological History: No Psychological Hx Reported Smoking Status: Never smoker Past Alcohol Use History: None Reported Past Drug Use History: None Reported - Past Family History Sister(s) Family Medical History: Cancer Father Family Medical History: Coronary Artery Disease (CAD) Additional Family Medical History / Comment(s): QUAD BYPASS AT AGE 69 Mother Family Medical History: Asthma Additional Family Medical History / Comment(s): EMPHYSEMA Medications and Allergies Home Medications Medication Instructions Recorded Confirmed Type Aspirin EC [Ecotrin Low Dose] 81 mg PO HS 09/03/23 09/03/23 History Losartan Potassium [Cozaar] 100 mg PO DAILY 09/03/23 09/03/23 History Metoprolol Tartrate [Lopressor] 50 mg PO BID 09/03/23 09/03/23 History Simvastatin [Zocor] 40 mg PO DIRECTED 09/03/23 09/03/23 History Simvastatin [Zocor] 80 mg PO DIRECTED 09/03/23 09/03/23 History Tamsulosin [Flomax] 0.4 mg PO HS 09/03/23 09/03/23 History Ubidecarenone [Coenzyme Q10] 200 mg PO HS 09/03/23 09/03/23 History ceFAZolin [Kefzol] 2 gm IVP Q8HR #120 each 09/08/23 Rx Allergies Allergy/AdvReac Type Severity Reaction Status Date / Time No Known Allergies Allergy Verified 09/03/23 18:11 Surgical - Exam Vital Signs Temp Pulse Resp BP Pulse Ox 98.8 F 103 H 18 148/59 96 09/03/23 13:47 09/03/23 13:47 09/03/23 13:47 09/03/23 13:47 09/03/23 13:47 - General well developed, well nourished, no distress - Respiratory normal respiratory effort - Abdomen Abdomen: soft, non tender, no guarding, no rigid, no rebound Hernia: umbilical - Genitourinary normal penis with no external lesions, testicles non-tender - Psychiatric oriented to time, oriented to person, oriented to place, speech is normal, memory intact Results - Labs 09/08/23 06:46 09/08/23 06:46 Abnormal Lab Results - Last 24 Hours (Table) 09/07/23 09/08/23 09/08/23 Range/Units 20:23 05:41 06:05 RBC (4.30-5.90) m/uL Hgb (13.0-17.5) gm/dL Hct (39.0-53.0) % Plt Count (150-450) k/uL Neutrophils # (1.3-7.7) k/uL Sodium (137-145) mmol/L Carbon Dioxide (22-30) mmol/L Creatinine (0.66-1.25) mg/dL Glucose (74-99) mg/dL POC Glucose (mg/dL) 234 H 147 H (70-110) mg/dL Calcium (8.4-10.2) mg/dL Total Protein (6.3-8.2) g/dL Albumin (3.5-5.0) g/dL Urine Protein Trace H (Negative) Urine Blood Large H (Negative) Ur Leukocyte Esterase Moderate H (Negative) Urine RBC >182 H (0-5) /hpf Urine WBC 57 H (0-5) /hpf Urine Mucus Rare H (None) /hpf 09/08/23 09/08/23 09/08/23 Range/Units 06:46 06:46 11:37 RBC 3.78 L (4.30-5.90) m/uL Hgb 11.0 L (13.0-17.5) gm/dL Hct 32.9 L (39.0-53.0) % Plt Count 534 H (150-450) k/uL Neutrophils # 7.8 H (1.3-7.7) k/uL Sodium 135 L (137-145) mmol/L Carbon Dioxide 19 L (22-30) mmol/L Creatinine 0.65 L (0.66-1.25) mg/dL Glucose 147 H (74-99) mg/dL POC Glucose (mg/dL) 240 H (70-110) mg/dL Calcium 7.7 L (8.4-10.2) mg/dL Total Protein 4.9 L (6.3-8.2) g/dL Albumin 2.2 L (3.5-5.0) g/dL Urine Protein (Negative) Urine Blood (Negative) Ur Leukocyte Esterase (Negative) Urine RBC (0-5) /hpf Urine WBC (0-5) /hpf Urine Mucus (None) /hpf 09/08/23 Range/Units 16:21 RBC (4.30-5.90) m/uL Hgb (13.0-17.5) gm/dL Hct (39.0-53.0) % Plt Count (150-450) k/uL Neutrophils # (1.3-7.7) k/uL Sodium (137-145) mmol/L Carbon Dioxide (22-30) mmol/L Creatinine (0.66-1.25) mg/dL Glucose (74-99) mg/dL POC Glucose (mg/dL) 183 H (70-110) mg/dL Calcium (8.4-10.2) mg/dL Total Protein (6.3-8.2) g/dL Albumin (3.5-5.0) g/dL Urine Protein (Negative) Urine Blood (Negative) Ur Leukocyte Esterase (Negative) Urine RBC (0-5) /hpf Urine WBC (0-5) /hpf Urine Mucus (None) /hpf Microbiology - Last 24 Hours (Table) 09/05/23 12:00 Gram Stain - Final Aspirate Body Fluid Culture - Final Strep agalactiae - (group b) Diabetes panel 09/08/23 Range/Units 06:46 Sodium 135 L (137-145) mmol/L Potassium 4.5 (3.5-5.1) mmol/L Chloride 107 (98-107) mmol/L Carbon Dioxide 19 L (22-30) mmol/L BUN 12 (9-20) mg/dL Creatinine 0.65 L (0.66-1.25) mg/dL Glucose 147 H (74-99) mg/dL Calcium 7.7 L (8.4-10.2) mg/dL AST 39 (17-59) U/L ALT 26 (4-49) U/L Alkaline Phosphatase 105 (38-126) U/L Total Protein 4.9 L (6.3-8.2) g/dL Albumin 2.2 L (3.5-5.0) g/dL Calcium panel 09/08/23 Range/Units 06:46 Calcium 7.7 L (8.4-10.2) mg/dL Albumin 2.2 L (3.5-5.0) g/dL Pituitary panel 09/08/23 Range/Units 06:46 Sodium 135 L (137-145) mmol/L Potassium 4.5 (3.5-5.1) mmol/L Chloride 107 (98-107) mmol/L Carbon Dioxide 19 L (22-30) mmol/L BUN 12 (9-20) mg/dL Creatinine 0.65 L (0.66-1.25) mg/dL Glucose 147 H (74-99) mg/dL Calcium 7.7 L (8.4-10.2) mg/dL Adrenal panel 09/08/23 Range/Units 06:46 Sodium 135 L (137-145) mmol/L Potassium 4.5 (3.5-5.1) mmol/L Chloride 107 (98-107) mmol/L Carbon Dioxide 19 L (22-30) mmol/L BUN 12 (9-20) mg/dL Creatinine 0.65 L (0.66-1.25) mg/dL Glucose 147 H (74-99) mg/dL Calcium 7.7 L (8.4-10.2) mg/dL Total Bilirubin 0.5 (0.2-1.3) mg/dL AST 39 (17-59) U/L ALT 26 (4-49) U/L Alkaline Phosphatase 105 (38-126) U/L Total Protein 4.9 L (6.3-8.2) g/dL Albumin 2.2 L (3.5-5.0) g/dL Assessment and Plan Assessment: The Lay catheter is now draining urine which is essentially clear in color. It is my impression that the hematuria resulted from the patient being restless with an indwelling Lay catheter in place. (1) Gross hematuria Current Visit: Yes Status: Acute Code(s): R31.0 - GROSS HEMATURIA SNOMED Code(s): 975420329 (2) Urinary retention Current Visit: Yes Status: Acute Code(s): R33.9 - RETENTION OF URINE, UNSPECIFIED SNOMED Code(s): 810421045 Plan: - Continue tamsulosin - Remove Lay catheter in a.m. for voiding trial. Time with Patient: Greater than 30
--- NOTE | 2023-09-08 19:47 | P.PN ---
Subjective Progress Note Date: 09/08/23 Patient is a pleasant 73-year-old male came in with compensative left shoulder pain unable to lift it and is also found to have cellulitis of the left upper extremity. Doppler of the left upper extremity did not show any DVT patient denied any history of MRSA presently on ceftezoline and clindamycin, infectious disease was consulted because of the concerns of shoulder joint infection, although [place] surgery was consulted. Patient does have leukocytosis and low- grade fevers. Patient recently visited urgent care who sent him here he visited urgent care because of significant generalized weakness 09/06/2023 Patient is found to have an abscess of the left shoulder patient underwent incision and drainage, patient is presently on ceftezole and and clindamycin and feeling much better today blood cultures are showing strep agalactiae. Patient will require IV antibiotics and the placement in a rehabilitation facility. Patient pain is well controlled. Patient has not been passing gas did not move his bowel yet. Patient will be started on Toradol and senna. 09/07/2023 Patient is seen and evaluated in follow-up today status post incision and drainage with wound VAC of the left shoulder into the chest area. Patient is afebrile with no reported chest pain although does report chest wall tenderness and denies shortness of breath. Patient having periods of confusion and would recommend limiting IV narcotics and will add low-dose Seroquel at night. Infectious disease is following maintained on antibiotics and awaiting cultures. Pulmonary culture showing strep agalactae group b and awaiting finalized cultures. 09/08/2023 Patient is seen in follow-up today has had wound VAC removed and incision site is clean and dry and some swelling has gone down of the left upper extremity and shoulder area. Patient continues with sling. Cultures showing strep group B agalactiae with infectious disease following and will continue on IV antibiotic therapy. Plan is for discharge to [facility] and insurance authorization was submitted by case management. Patient was noted to have some hematuria in the Lay which was placed for postoperative retention. Patient was somewhat confused and restl ess yesterday which may have caused trauma. Will consult urology and appreciate input and recommendations. Hemoglobin is stable and will follow-up with repeat labs in a.m. Patient is afebrile with no reported chest pain or shortness of breath. Patient reports to tolerating diet and has been up to the chair although asks to frequently get back into bed per nursing staff. Review of systems: Constitutional: Denied any fatigue denied any fever. Cardio vascular: denied any chest pain, palpitations Gastrointestinal denied any nausea vomiting Pulmonary: Denied any shortness of breath cough Neurologic denied any new focal deficits, reports limited shoulder movement and left shoulder pain All inpatient medications were reviewed and appropriate changes in these medications as dictated in the interval history and assessment and plan. PHYSICAL EXAMINATION: GENERAL: The patient is alert and oriented x2-3, not in any acute distress. Answering questions more appropriately today. Well developed, well nourished. Obese HEENT: Pupils are round and equally reacting to light. EOMI. No scleral icterus. No conjunctival pallor. Normocephalic, atraumatic. No pharyngeal erythema. No thyromegaly. CARDIOVASCULAR: S1 and S2 present. No murmurs, rubs, or gallops. PULMONARY: Chest is clear to auscultation, no wheezing or crackles. ABDOMEN: Soft, nontender, nondistended, normoactive bowel sounds. No palpable organomegaly. MUSCULOSKELETAL: Left shoulder tenderness with limited range and sling on exam EXTREMITIES: No cyanosis, clubbing, or pedal edema. Left upper extremity swelling sling noted NEUROLOGICAL: Gross neurological examination did not reveal any focal deficits. Diffusely weak SKIN: Cellulitis of the left shoulder is significantly improved Assessment: -Abscess and septic arthritis of the left shoulder: Status post incision and drainage, patient cultures are positive for group B streptococci. -Bacteremia as mentioned above with repeat cultures negative -Acute confusion, multifactorial, likely toxic encephalopathy with narcotic medication effect as well as hospital-acquired delirium, improved -Postoperative urinary retention, an expected outcome most likely secondary to medication effect from anesthesia requiring indwelling Lay catheter -Hematuria noted from the catheter likely secondary to trauma as patient was restless yesterday, improving -Cellulitis of the left upper extremity, improving -Hypovolemic hyponatremia , improving -Hypertension -Benign prostatic hypertrophy continue with Flomax -Hyperlipidemia -Type 2 diabetes mellitus -Osteoarthritis -Coronary artery disease with stents in the past -Mild hyperkalemia: Secondary to losartan dose , improved -DVT prophylaxis: Lovenox 50 mg subcutaneous -GI prophylaxis -Full code Plan: Patient continues with IV antibiotics with infectious disease following and arranging for outpatient antibiotics at [facility]. wound VAC was removed by orthopedics and to continue with local wound care and sling of the left upper extremity Infectious disease following as well with culture showing group B strep Mentation improved today and will continue with at night Seroquel and Encouraged opening the shades of the windows and reorienting frequently Case management following and has submitted for insurance authorization Urology consulted and appreciate input and recommendations regarding hematuria. Instructed nursing staff to flush the Lay and continue with Lay and trial void in a.m. Continue Flomax Follow-up on CBC in the a.m. Probable discharge planning in 24 hours The impression and plan of care has been dictated by [place] L[place], Nurse Practitioner as directed. Dr. Chuyita MD I have performed a history and examination and MDM of this patient, discussed the same with the dictator, and agree with the dictator's assessment and plan as written ,documented as a scribe. Based on total visit time, I have performed more than 50% of the visit. Objective - Vital Signs Vital signs: Vital Signs Temp 98.7 F 09/08/23 07:23 Pulse 89 09/08/23 07:23 Resp 20 09/08/23 10:13 BP 150/90 09/08/23 07:23 Pulse Ox 96 09/08/23 07:23 FiO2 Intake & Output 09/07/23 09/08/23 09/08/23 18:59 06:59 18:59 Output Total 1500 750 Balance -1500 -750 Weight 102.058 kg Output: Urine 1500 750 Other: Voiding Method Indwelling Catheter Indwelling Catheter # Bowel Movements 1 - Labs CBC & Chem 7: 09/08/23 06:46 09/08/23 06:46 Labs: Abnormal Lab Results - Last 24 Hours (Table) 09/07/23 09/07/23 09/07/23 Range/Units 06:00 06:00 11:32 WBC 10.95 H (4.50-10.00) X 10*3/uL RBC 3.73 L (4.40-5.60) X 10*6/uL Hgb 10.6 L (13.0-17.0) d/dL Hct 32.4 L (39.6-50.0) % RDW 15.1 H (11.5-14.5) % Plt Count 442 H (140-440) X 10*3/uL Neutrophils # (1.3-7.7) k/uL Sodium (137-145) mmol/L Carbon Dioxide (22-30) mmol/L Creatinine (0.66-1.25) mg/dL BUN/Creatinine Ratio 27.57 H (12.00-20.00) Ratio Glucose 200 H (70-110) mg/dL POC Glucose (mg/dL) 222 H (70-110) mg/dL Calcium 7.6 L (8.7-10.3) mg/dL Total Protein (6.3-8.2) g/dL Albumin (3.5-5.0) g/dL Urine Protein (Negative) Urine Blood (Negative) Ur Leukocyte Esterase (Negative) Urine RBC (0-5) /hpf Urine WBC (0-5) /hpf Urine Mucus (None) /hpf 09/07/23 09/07/23 09/08/23 Range/Units 16:35 20:23 05:41 WBC (4.50-10.00) X 10*3/uL RBC (4.40-5.60) X 10*6/uL Hgb (13.0-17.0) d/dL Hct (39.6-50.0) % RDW (11.5-14.5) % Plt Count (140-440) X 10*3/uL Neutrophils # (1.3-7.7) k/uL Sodium (137-145) mmol/L Carbon Dioxide (22-30) mmol/L Creatinine (0.66-1.25) mg/dL BUN/Creatinine Ratio (12.00-20.00) Ratio Glucose (70-110) mg/dL POC Glucose (mg/dL) 185 H 234 H 147 H (70-110) mg/dL Calcium (8.7-10.3) mg/dL Total Protein (6.3-8.2) g/dL Albumin (3.5-5.0) g/dL Urine Protein (Negative) Urine Blood (Negative) Ur Leukocyte Esterase (Negative) Urine RBC (0-5) /hpf Urine WBC (0-5) /hpf Urine Mucus (None) /hpf 09/08/23 09/08/23 09/08/23 Range/Units 06:05 06:46 06:46 WBC (4.50-10.00) X 10*3/uL RBC 3.78 L (4.40-5.60) X 10*6/uL Hgb 11.0 L (13.0-17.0) d/dL Hct 32.9 L (39.6-50.0) % RDW (11.5-14.5) % Plt Count 534 H (140-440) X 10*3/uL Neutrophils # 7.8 H (1.3-7.7) k/uL Sodium 135 L (137-145) mmol/L Carbon Dioxide 19 L (22-30) mmol/L Creatinine 0.65 L (0.66-1.25) mg/dL BUN/Creatinine Ratio (12.00-20.00) Ratio Glucose 147 H (70-110) mg/dL POC Glucose (mg/dL) (70-110) mg/dL Calcium 7.7 L (8.7-10.3) mg/dL Total Protein 4.9 L (6.3-8.2) g/dL Albumin 2.2 L (3.5-5.0) g/dL Urine Protein Trace H (Negative) Urine Blood Large H (Negative) Ur Leukocyte Esterase Moderate H (Negative) Urine RBC >182 H (0-5) /hpf Urine WBC 57 H (0-5) /hpf Urine Mucus Rare H (None) /hpf Microbiology - Last 24 Hours (Table) 09/05/23 12:00 Gram Stain - Final Aspirate Body Fluid Culture - Final Strep agalactiae - (group b)
[2023-09-08 20:33] LABS: Glucose,Whole Blood 247 mg/dL (70-110)
[2023-09-08] MEDS: TAMSULOSIN 0.4 MG CAP.ER.24H PO SCH (22:07)
[2023-09-08] MEDS: ATORVASTATIN 20 MG TAB PO SCH (22:07)
[2023-09-08] MEDS: FAMOTIDINE 20 MG TAB PO SCH (22:07)
[2023-09-08] MEDS: ASPIRIN 81 MG PO SCH (22:07)
[2023-09-08] MEDS: QUEtiapine 25 MG TAB PO SCH (22:07)
--- NOTE | 2023-09-08 23:40 | P.PN ---
Subjective Progress Note Date: 09/08/23 Principal diagnosis: Left shoulder abscess and bacteremia Patient is a 73-year-old male with a past medical history for diab significantetes mellitus hypertension hyperlipidemia reflux osteoarthritis presenting to the ER for evaluation of left shoulder redness fever and pain, patient did have a CT that has been suggestive of left shoulder abscess and septic joint and the patient also have a positive blood culture with Streptococcus agalactiae, patient is status post surgical drainage of the left shoulder abscess and application of wound VAC on 09/05/2023 On today's evaluation that is 09/08/2023, the patient denies any fever or any chills, the patient is breathing comfortably on room air and no need for supplemental oxygen , the patient denies chest pain or cough, patient denies abdominal pain, no nausea/vomiting and no diarrhea has been reported the patient pain to the left shoulder area has decreased in intensity Patient white count is down to 9.5, creatinine 0.65, blood culture with Streptococcus agalactiae Objective - Vital Signs Vital signs: Vital Signs Temp 98.4 F 09/08/23 14:11 Pulse 91 09/08/23 14:11 Resp 18 09/08/23 14:11 BP 133/56 09/08/23 14:11 Pulse Ox 95 09/08/23 14:11 FiO2 Intake & Output 09/07/23 09/08/23 09/08/23 18:59 06:59 18:59 Output Total 1500 750 Balance -1500 -750 Weight 102.058 kg Output: Urine 1500 750 Other: Voiding Method Indwelling Catheter Indwelling Catheter # Bowel Movements 1 - Exam GENERAL DESCRIPTION: An elderly male lying in bed in no distress RESPIRATORY SYSTEM: Unlabored breathing , decreased breath sounds at bases HEART: S1 S2 regular rate and rhythm , ABDOMEN: Soft , no tenderness Left shoulder is covered with a wound VAC - Labs CBC & Chem 7: 09/08/23 06:46 09/08/23 06:46 Labs: Abnormal Lab Results - Last 24 Hours (Table) 09/07/23 09/07/23 09/08/23 Range/Units 16:35 20: 05:41 RBC (4.30-5.90) m/uL Hgb (13.0-17.5) gm/dL Hct (39.0-53.0) % Plt Count (150-450) k/uL Neutrophils # (1.3-7.7) k/uL Sodium (137-145) mmol/L Carbon Dioxide (22-30) mmol/L Creatinine (0.66-1.25) mg/dL Glucose (74-99) mg/dL POC Glucose (mg/dL) 185 H 234 H 147 H (70-110) mg/dL Calcium (8.4-10.2) mg/dL Total Protein (6.3-8.2) g/dL Albumin (3.5-5.0) g/dL Urine Protein (Negative) Urine Blood (Negative) Ur Leukocyte Esterase (Negative) Urine RBC (0-5) /hpf Urine WBC (0-5) /hpf Urine Mucus (None) /hpf 09/08/23 09/08/23 09/08/23 Range/Units 06:05 06:46 06:46 RBC 3.78 L (4.30-5.90) m/uL Hgb 11.0 L (13.0-17.5) gm/dL Hct 32.9 L (39.0-53.0) % Plt Count 534 H (150-450) k/uL Neutrophils # 7.8 H (1.3-7.7) k/uL Sodium 135 L (137-145) mmol/L Carbon Dioxide 19 L (22-30) mmol/L Creatinine 0.65 L (0.66-1.25) mg/dL Glucose 147 H (74-99) mg/dL POC Glucose (mg/dL) (70-110) mg/dL Calcium 7.7 L (8.4-10.2) mg/dL Total Protein 4.9 L (6.3-8.2) g/dL Albumin 2.2 L (3.5-5.0) g/dL Urine Protein Trace H (Negative) Urine Blood Large H (Negative) Ur Leukocyte Esterase Moderate H (Negative) Urine RBC >182 H (0-5) /hpf Urine WBC 57 H (0-5) /hpf Urine Mucus Rare H (None) /hpf 09/08/23 Range/Units 11:37 RBC (4.30-5.90) m/uL Hgb (13.0-17.5) gm/dL Hct (39.0-53.0) % Plt Count (150-450) k/uL Neutrophils # (1.3-7.7) k/uL Sodium (137-145) mmol/L Carbon Dioxide (22-30) mmol/L Creatinine (0.66-1.25) mg/dL Glucose (74-99) mg/dL POC Glucose (mg/dL) 240 H (70-110) mg/dL Calcium (8.4-10.2) mg/dL Total Protein (6.3-8.2) g/dL Albumin (3.5-5.0) g/dL Urine Protein (Negative) Urine Blood (Negative) Ur Leukocyte Esterase (Negative) Urine RBC (0-5) /hpf Urine WBC (0-5) /hpf Urine Mucus (None) /hpf Microbiology - Last 24 Hours (Table) 09/05/23 12:00 Gram Stain - Final Aspirate Body Fluid Culture - Final Strep agalactiae - (group b) Assessment and Plan (1) Abscess of left shoulder Current Visit: Yes Status: Acute Code(s): L02.414 - CUTANEOUS ABSCESS OF LEFT UPPER LIMB SNOMED Code(s): 72537818 (2) Bacteremia due to Streptococcus Current Visit: Yes Status: Acute Code(s): R78.81 - BACTEREMIA; B95.5 - UNSP STREPTOCOCCUS THE CAUSE OF DISEASES [facility] SNOMED Code(s): 354986672545 Plan: 1patient was in the hospital with sepsis in this patient with a fever elevated white count source likely left shoulder abscesses the patient was noted to have significant swelling redness to the left upper shoulder area with an area of induration and fluctuation and significant tenderness likely from gram-positive skin peggy 2- CT of the left shoulder area suggestive of the abscess patient is status post surgical drainage of this abscess and application of wound VAC 3-blood culture positive for strep cocci agalactiae likely the source of bacteremia the left shoulder abscess 4-patient to continue with cefazolin and clindamycin, however plan to finish therapy with cefazolin 2gm q8hr x 6 weeks Dictation was produced using [employer] software. please excuse any grammatical, word or spelling errors. Time with Patient: Less than 30
[2023-09-09] MEDS: SODIUM CHLORIDE 0.9% 1,000 ML IV SCH (05:34)
[2023-09-09 05:51] LABS: Glucose,Whole Blood 141 mg/dL (70-110)
[2023-09-09] MEDS: INSULIN ASPART (NovoLOG) 100 UNIT/ML VIAL SQ SCH ×2 (05:57→12:26)
[2023-09-09 08:49] VITALS: RESP 18
[2023-09-09] MEDS: FAMOTIDINE 20 MG TAB PO SCH (09:00)
[2023-09-09] MEDS: METOPROLOL TARTRATE 50 MG TAB PO SCH (09:01)
[2023-09-09] MEDS: LOSARTAN 50 MG TAB PO SCH (09:01)
[2023-09-09] MEDS: ENOXAPARIN 60 MG/0.6 ML SYRINGE SQ SCH (09:01)
[2023-09-09 11:06] LABS: Basophils # (A) 0.07 X 10*3/uL (0.00-0.10); Basophils % (A) 0.7 %; Eosinophils # (A) 0.19 X 10*3/uL (0.04-0.35); HCT 32.3 % (39.6-50.0); HGB 10.3 d/dL (13.0-17.0); Lymphocytes % (A) 13.8 %; MCH 27.5 pg (27.0-32.0); MCHC 31.9 d/dL (32.0-37.0); MCV 86.4 FL (80.0-97.0); Mean Platelet Volume 9.8 FL (9.5-12.2); Monocytes # (A) 0.55 X 10*3/uL (0.20-1.00); Monocytes % (A) 5.8 %; NRBC Per 100 WBC 0 X 10*3/uL (0.00-0.01); Neutrophils # (A) 6.98 X 10*3/uL (1.80-7.70); Platelet Count 584 X 10*3/uL (140-440); RBC 3.74 X 10*6/uL (4.40-5.60); RDW 15.1 % (11.5-14.5); WBC 9.44 X 10*3/uL (4.50-10.00)
[2023-09-09 11:21] LABS: Glucose,Whole Blood 241 mg/dL (70-110)
[2023-09-09] MEDS ORDERED: LIDOCAINE 1% INJ 10MG/ML (5 ML VIAL-PF) SQ ONE ×2 (11:59→12:02)
[2023-09-09 12:49] VITALS: BP 136/84; PULSE 84; TEMP 98.9
[2023-09-09 13:00] LABS: Prothrombin Time 11.3 sec (10.0-12.5)
--- NOTE | 2023-09-09 14:04 | P.DS ---
Providers Date of admission: 09/03/23 18:49 Expected date of discharge: 09/09/23 Attending physician: Orville Perez Consults: 09/04/23 07:10 Consult Physician Routine Consulting Provider: Edvin Alas Consult Reason/Comments: cellulitis Do you want consulting provider notified?: Yes, Notify in am 09/05/23 10:22 Consult Physician Urgent Consulting Provider: Arthur Ball Consult Reason/Comments: left shoulder septic j, and abscess Do you want consulting provider notified?: Yes 09/08/23 17:35 Consult Physician Routine Consulting Provider: Mac Mejias Consult Reason/Comments: Lay for retention now has hematuria Do you want consulting provider notified?: Yes Primary care physician: Rogers Boykin DO Hospital Course: Final diagnosis -Abscess and septic arthritis of the left shoulder: Status post incision and drainage, patient cultures are positive for group B streptococci. - sepsis, present on admission secondary to septic arthritis -Bacteremia as mentioned above with repeat cultures negative -Acute confusion, multifactorial, likely toxic encephalopathy with narcotic medication effect as well as hospital-acquired delirium, improved -Postoperative urinary retention, an expected outcome most likely secondary to medication effect from anesthesia requiring indwelling Lay catheter -Hematuria noted from the catheter likely secondary to trauma as patient was restless yesterday, resolved -Cellulitis of the left upper extremity, improving -Hypovolemic hyponatremia , improving -Hypertension -Benign prostatic hypertrophy continue with Flomax -Hyperlipidemia -Type 2 diabetes mellitus -Osteoarthritis -Coronary artery disease with stents in the past -Mild hyperkalemia: Secondary to losartan dose , improved -DVT prophylaxis: Lovenox 50 mg subcutaneous -GI prophylaxis -Full code Discharge disposition Patient is being discharged in a stable condition with guarded prognosis to [facility] . Patient will follow-up with Dr. Boykin in the outpatient setting upon discharge. Patient is to continue with PICC line and IV antibiotics in the form of cefazolin for the next 6 weeks and outpatient follow- up with infectious disease, urology, and his orthopedic surgeon as scheduled. Total time taken is greater than 35 minutes. Hospital course This is a 73-year-old male who was recently admitted with left shoulder pain and found to have cellulitis of the left upper extremity and shoulder joint infection and was found to have features of sepsis, present on admission secondary to septic arthritis and is status post incision and drainage. Culture showing group B streptococci and showed clinical improvement and had wound VAC which was replaced and removed and will continue with local wound care and close outpatient follow-up with infectious disease along with his surgeon once antibiotics have been discontinued. Patient had a brief episode of hospital- acquired delirium was given Seroquel at night as needed and has improved. Patient is alert and oriented 3. Patient also having some postoperative urinary retention requiring indwelling Lay catheter with some noted hematuria. Patient's hematuria was most likely secondary to trauma from patient being restless when he had periods of confusion. Patient was evaluated by urology and also agree was secondary to trauma and hemoglobin is stable and there is no further hematuria noted. Patient will continue with indwelling Lay catheter for retention and trial void in the outpatient setting once more mobile. Urology recommended outpatient follow-up. Patient has been cleared by consultations for discharge and has received a PICC line. Patient will be going to [facility]. Per orthopedics patient is to continue sling and nonweightbearing of the left upper extremity. Currently no reports of chest pain, shortness of breath, or palpitations. Patient is afebrile. No reports of nausea or vomiting and patient is tolerating diet. Patient will be going to [facility] in [place] today. Physical exam: Gen: This is a 73-year-old male who is awake, alert and oriented 3, well- developed, well-nourished, obese HEENT: Head is atraumatic, normocephalic. Pupils equal, round. Sclerae is anicteric. NECK: Supple. No JVD. No lymphadenopathy. No thyromegaly. LUNGS: Clear to auscultation. No wheezes or rhonchi. No intercostal retractions. HEART: Regular rate and rhythm. No murmur. ABDOMEN: Soft. obese.Bowel sounds are present. No masses. No tenderness. EXTREMITIES: No pedal edema. No calf tenderness. Left upper extremity shoulder with dressing that is dry and intact and surgical site with no significant redness or swelling noted. Sling is noted of the left upper extremity NEUROLOGICAL: Patient is awake, alert and oriented x3. Cranial nerves 2 through 12 are grossly intact. Please refer to medication reconciliation sheet for a list of medications. The impression and plan of care has been dictated by [place] Gertrude, Nurse Prac titioner as directed. Dr. Chuyita MD I have performed a history and examination and MDM of this patient, discussed the same with the dictator, and agree with the dictator's assessment and plan as written ,documented as a scribe. Based on total visit time, I have performed more than 50% of the visit. Patient Condition at Discharge: Stable Plan - Discharge Summary Discharge Rx Participant: No New Discharge Prescriptions: New Losartan [Cozaar] 50 mg PO DAILY tab Atorvastatin [Lipitor] 40 mg PO Q48H tab polyethylene glycoL 3350 [Miralax] 17 gm PO DAILY PRN packet PRN Reason: Constipation INSULIN ASPART (NovoLOG) [NovoLOG (formulary)] 0 unit SQ ACHS each QUEtiapine [SEROquel] 12.5 mg PO HS tab Acetaminophen Tab [Tylenol] 650 mg PO Q6HR PRN tab PRN Reason: Fever And/ Or Pain ceFAZolin [Kefzol] 2 gm IVP Q8HR #120 each Atorvastatin [Lipitor] 20 mg PO Q48H tab Enoxaparin [Lovenox] 50 mg SQ DAILY each Famotidine [Pepcid] 20 mg PO BID tab Sennosides-Docusate Sodium [Senokot-S] 2 each PO HS PRN tab PRN Reason: Constipation Continue Tamsulosin [Flomax] 0.4 mg PO HS Aspirin EC [Ecotrin Low Dose] 81 mg PO HS Metoprolol Tartrate [Lopressor] 50 mg PO BID Ubidecarenone [Coenzyme Q10] 200 mg PO HS Discontinued Simvastatin [Zocor] 40 mg PO DIRECTED Losartan Potassium [Cozaar] 100 mg PO DAILY Simvastatin [Zocor] 80 mg PO DIRECTED Discharge Medication List Aspirin EC [Ecotrin Low Dose] 81 mg PO HS 09/03/23 [History] Metoprolol Tartrate [Lopressor] 50 mg PO BID 09/03/23 [History] Tamsulosin [Flomax] 0.4 mg PO HS 09/03/23 [History] Ubidecarenone [Coenzyme Q10] 200 mg PO HS 09/03/23 [History] ceFAZolin [Kefzol] 2 gm IVP Q8HR #120 each 09/08/23 [Rx] Acetaminophen Tab [Tylenol] 650 mg PO Q6HR PRN tab 09/09/23 [Rx] Atorvastatin [Lipitor] 20 mg PO Q48H tab 09/09/23 [Rx] Atorvastatin [Lipitor] 40 mg PO Q48H tab 09/09/23 [Rx] Enoxaparin [Lovenox] 50 mg SQ DAILY each 09/09/23 [Rx] Famotidine [Pepcid] 20 mg PO BID tab 09/09/23 [Rx] INSULIN ASPART (NovoLOG) [NovoLOG (formulary)] 0 unit SQ ACHS each 09/09/23 [Rx] Losartan [Cozaar] 50 mg PO DAILY tab 09/09/23 [Rx] QUEtiapine [SEROquel] 12.5 mg PO HS tab 09/09/23 [Rx] Sennosides-Docusate Sodium [Senokot-S] 2 each PO HS PRN tab 09/09/23 [Rx] polyethylene glycoL 3350 [Miralax] 17 gm PO DAILY PRN packet 09/09/23 [Rx] Follow up Appointment(s)/Referral(s): Mac Mejias MD [STAFF PHYSICIAN] - 1 Week Rogers Boykin DO [Primary Care Provider] - 1-2 days Edvin Alas MD [STAFF PHYSICIAN] - 1 Week Ambulatory/Diagnostic Orders: Basic Metabolic Panel [LAB.AMB] Location: None Selected C Reactive Protein [LAB.AMB] Location: None Selected Complete Blood Count w/diff [LAB.AMB] Location: None Selected Erythrocyte Sedimentation Rate [LAB.AMB] Location: None Selected Activity/Diet/Wound Care/Special Instructions: [facility] rehab Activity as tolerated Follow-up with surgeon outpatient Continue IV antibiotic therapy for 6 weeks course for ID recommendations and outpatient follow-up with infectious disease Continue with indwelling Lay catheter for retention and trial void once more mobile Follow-up with urology outpatient in 1-2 weeks Continue bowel regimen Continue local wound care and sling to the left shoulder Continue monitoring Accu-Cheks before meals and at bedtime NovoLog sliding scale 0-150 equals 0 units 151-200 equals 2 units 201-250 equals 4 units 251-300 equals 6 units 301-350 equals 8 units 351-400 equals 10 units Please notify provider if blood sugar is 400 or above Discharge Disposition: TRANSFER TO SNF/ECF
--- NOTE | 2023-09-09 16:00 | P.PN ---
Subjective Progress Note Date: 09/09/23 Principal diagnosis: Left shoulder abscess and bacteremia Patient is a 73-year-old male with a past medical history for diab significantetes mellitus hypertension hyperlipidemia reflux osteoarthritis presenting to the ER for evaluation of left shoulder redness fever and pain, patient did have a CT that has been suggestive of left shoulder abscess and septic joint and the patient also have a positive blood culture with Streptococcus agalactiae, patient is status post surgical drainage of the left shoulder abscess and application of wound VAC on 09/05/2023 On today's evaluation that is 09/09/2023, the patient remains to be afebrile the patient is breathing comfortably on room air without need for supplemental oxygen, the patient denies chest pain, shortness of breath or cough, patient denies nausea/vomiting , no diarrhea and no abdominal pain the patient pain to the left shoulder has decreased in intensity Patient white count of 9.44 5, creatinine 0.65 as of yesterday, blood culture with Streptococcus agalactiae Objective - Vital Signs Vital signs: Vital Signs Temp 98.0 F 09/09/23 06:41 Pulse 89 09/09/23 06:41 Resp 18 09/09/23 06:41 BP 165/84 09/09/23 06:41 Pulse Ox 95 09/09/23 06:41 FiO2 Intake & Output 09/08/23 09/09/23 09/09/23 18:59 06:59 18:59 Intake Total 950 200 Output Total 300 1700 450 Balance -300 -750 -250 Weight 102.058 kg Intake: Intake, IV Titration 950 Amount Sodium Chloride 0.9% 1, 900 000 ml @ 75 mls/hr IV . [id number] [facility] Rx#:[id number] ceFAZolin 2 gm In Sodium 50 Chloride 0.9% 50 ml @ 100 mls/hr IVPB Q8HR [facility] Rx# :[id number] Oral 200 Output: Urine 300 1700 450 Other: Voiding Method Indwelling Catheter Indwelling Catheter # Voids 0 # Bowel Movements 1 - Exam GENERAL DESCRIPTION: An elderly male lying in bed in no distress RESPIRATORY SYSTEM: Unlabored breathing , decreased breath sounds at bases HEART: S1 S2 regular rate and rhythm , ABDOMEN: Soft , no tenderness Left shoulder is covered with dressing no drainage on the dressing - Labs CBC & Chem 7: 09/09/23 06:40 09/08/23 06:46 Labs: Abnormal Lab Results - Last 24 Hours (Table) 09/08/23 09/08/23 09/08/23 Range/Units 11:37 16:21 20:31 POC Glucose (mg/dL) 240 H 183 H 247 H (70-110) mg/dL 09/09/23 Range/Units 05:47 POC Glucose (mg/dL) 141 H (70-110) mg/dL Microbiology - Last 24 Hours (Table) 09/03/23 15:15 Blood Culture - Final Blood 09/05/23 12:00 Gram Stain - Final Aspirate Body Fluid Culture - Final Strep agalactiae - (group b) Assessment and Plan (1) Abscess of left shoulder Status: Acute Code(s): L02.414 - CUTANEOUS ABSCESS OF LEFT UPPER LIMB SNOMED Code(s): 16979320 (2) Bacteremia due to Streptococcus Status: Acute Code(s): R78.81 - BACTEREMIA; B95.5 - UNSP STREPTOCOCCUS THE CAUSE OF DISEASES [facility] SNOMED Code(s): 636740495921 Plan: 1patient was in the hospital with sepsis in this patient with a fever elevated white count source likely left shoulder abscesses the patient was noted to have significant swelling redness to the left upper shoulder area with an area of induration and fluctuation and significant tenderness likely from gram-positive skin peggy 2- CT of the left shoulder area suggestive of the abscess patient is status post surgical drainage of this abscess and application of wound VAC 3-blood culture positive for strep cocci agalactiae likely the source of bacteremia the left shoulder abscess 4-patient has shown clinical improvement, plan to finish therapy with cefazolin 2gm q8hr x 6 weeks and close outpatient follow-up Dictation was produced using [employer] dictation software. please excuse any grammatical, word or spelling errors. Time with Patient: Less than 30
== END 2023-09-09 15:56 | DRG 853 ==
LOC: EC 13:32 → 5NMEDONC 18:49 → 4SSUR 23:59
PROVIDERS: ADMIT Internal Medicine; ATTEND Internal Medicine
PROC: 0X9300Z Drainage of Left Shoulder Region with Drainage Device, Open Approach (ICD-10-PCS; principal; 2023-09-05 11:40)
PROC: 0RBK0ZZ Excision of Left Shoulder Joint, Open Approach (ICD-10-PCS; principal; 2023-09-05 11:40)
PROC: 02HV33Z Insertion of Infusion Device into Superior Vena Cava, Percutaneous Approach (ICD-10-PCS; 2023-09-09)
DX: A40.9 Streptococcal sepsis, unspecified (principal); G92.8 Other toxic encephalopathy; E87.1 Hypo-osmolality and hyponatremia; F05 Delirium due to known physiological condition; L02.414 Cutaneous abscess of left upper limb; L03.114 Cellulitis of left upper limb; L03.313 Cellulitis of chest wall; M00.9 Pyogenic arthritis, unspecified; E78.5 Hyperlipidemia, unspecified; E86.1 Hypovolemia; E87.5 Hyperkalemia; K21.9 Gastro-esophageal reflux disease without esophagitis; K08.409 Partial loss of teeth, unspecified cause, unspecified class; T40.0X5A Adverse effect of opium, initial encounter; I10 Essential (primary) hypertension; I25.10 Atherosclerotic heart disease of native coronary artery without angina pectoris; M17.0 Bilateral primary osteoarthritis of knee; M75.102 Unspecified rotator cuff tear or rupture of left shoulder, not specified as traumatic; M19.012 Primary osteoarthritis, left shoulder; N40.1 Benign prostatic hyperplasia with lower urinary tract symptoms; R31.0 Gross hematuria; R33.8 Other retention of urine; Z79.899 Other long term (current) drug therapy; Z82.49 Family history of ischemic heart disease and other diseases of the circulatory system; Z82.5 Family history of asthma and other chronic lower respiratory diseases; Z95.5 Presence of coronary angioplasty implant and graft; Z79.4 Long term (current) use of insulin
CPT/HCPCS: 36415; 36573; 71045; 80048; 80053; 81001; 82565; 83605; 83735; 84550; 85025; 85027; 85610; 85652; 86140; 87040; 87070; 87077; 87186; 87205; 96361; 96365; 96366; 96375; 99285